=== PATIENT | female | born 1950 | race Caucasian/White ===

== ENCOUNTER 2019-08-09 14:35 | Inpatient (IN) | payer MEDICARE ==
[~2019-08-09] VITALS: Ht 152.4 cm; Wt 54.7 kg
[~2019-08-09 14:35] MED LIST: ASPI-1264 PO; CYT5T PO; FLUO20CA39 PO; FURO-150 PO; LAMO200T2 PO; LEVO75TA PO; LORA0.5T PO; POTA99TA18 PO; RES15C PO
[2019-08-09] MEDS ORDERED: ondansetron/PF 4mg/2ml inj IV ONE ×2 (15:20→17:15)
[2019-08-09] MEDS ORDERED: normal saline 1000ML IV soln IVB ONE (15:20)
[2019-08-09 15:55] LABS: BASOPHILS % (AUTO) 0.1 % (0-1); EOSINOPHILS % (AUTO) 0 % (0-6); HEMATOCRIT 35.5 % (35.0-45.0); HEMOGLOBIN 12.1 g/dl (12.0-16.0); LYMPHOCYTES # (AUTO) 0.7 X10'3 (1.1-4.8); LYMPHOCYTES % (AUTO) 5.4 % (21-51); MEAN CORPUSCULAR HEMOGLOBIN 29.7 PG (27.0-31.0); MEAN CORPUSCULAR HGB CONC 34.2 g/dL (33.0-36.5); MEAN CORPUSCULAR VOLUME 86.7 FL (78-98); MEAN PLATELET VOLUME 8.9 FL (7.4-10.4); MONOCYTES # (AUTO) 1.2 X10'3 (0-0.9); MONOCYTES % (AUTO) 8.7 % (2-12); NEUTROPHILS # (AUTO) 11.7 X10'3 (1.8-7.7); NEUTROPHILS % (AUTO) 85.8 % (42-75); PLATELET COUNT 201 X10'3 (140-440); RED BLOOD COUNT 4.09 X10'6 (4.20-5.60); RED CELL DISTRIBUTION WIDTH 14.6 % (11.5-14.5); WHITE BLOOD COUNT 13.7 X10'3 (4.5-11.0)
[2019-08-09 15:57] LABS: PARTIAL THROMBOPLASTIN TIME 31 SECONDS (22-32)
[2019-08-09 16:10] LABS: ALANINE AMINOTRANSFERASE 31 U/L (12-78); ALBUMIN 2.5 G/DL (3.4-5.0); ALBUMIN/GLOBULIN RATIO 0.7 (1.1-1.5); ALKALINE PHOSPHATASE 105 IU/L (46-116); ANION GAP 9 (8-16); ASPARTATE AMINO TRANSFERASE 25 U/L (10-37); BILIRUBIN,TOTAL 0.4 MG/DL (0.1-1.0); BLOOD UREA NITROGEN 12 MG/DL (7-18); BUN/CREATININE RATIO 11.2 (6.6-38.0); CALCIUM 8.3 MG/DL (8.5-10.1); CHLORIDE 92 MMOL/L (99-107); CREATININE 1.07 MG/DL (0.40-0.90); GLUCOSE 92 MG/DL (70-104); LIPASE 64 U/L (73-393); POTASSIUM 3.4 MMOL/L (3.5-5.1); SODIUM 128 MMOL/L (135-145); TOTAL CARBON DIOXIDE 27.2 MMOL/L (24-32); TOTAL PROTEIN 6.2 G/DL (6.4-8.2); eGFR 51 ML/MIN
[2019-08-09 16:27] LABS: C-REACTIVE PROTEIN 35.78 MG/DL (0.0-0.5)
[2019-08-09] MEDS ORDERED: metroNIDAZOLE-Flagyl 500mg/NS 100 ML IV ONE (16:55)
[2019-08-09] MEDS ORDERED: ciprofloxacin 250mg tablet PO STA (17:11)
[2019-08-09] MEDS ORDERED: morphine 4 MG/ML inj SYRINge IV ONE (17:15)
[2019-08-09 18:00] VITALS: BP 95/47
[2019-08-09] MEDS ORDERED: magnesium Cl slow-release 64mg tablet PO PRN (19:00)
[2019-08-09] MEDS ORDERED: morphine 2 MG/ML inj. syringe IV PRN (19:00)
[2019-08-09] MEDS ORDERED: potassium CL 10mEq/100ml bag 100 ML IV PRN ×2 (19:00)
[2019-08-09] MEDS ORDERED: magnesium 4gm in 100ml NS 100 ML IV PRN (19:00)
[2019-08-09] MEDS ORDERED: potassium Cl 20 mEq SR tablet PO PRN (19:00)
[2019-08-09] MEDS ORDERED: magnesium 2GM in 50ml NS 50 ML IV PRN (19:00)
[2019-08-09] MEDS: normal saline 1000ml 1,000 ML IV SCH (19:16)
[2019-08-09] MEDS: levoFLOXACIN-Levaquin 500mg/D5 100 ML IV SCH (19:16)
[2019-08-09] MEDS: ondansetron/PF 4mg/2ml inj IV PRN (19:16)
[2019-08-09 19:30] LABS: CLARITY,URINE SLIGHTLY CLOUDY (Clear); COLOR,URINE YELLOW (Yellow); GLUCOSE, URINE NEGATIVE (Neg); KETONES,URINE 15 mg/dl (Neg); LEUKOCYTE ESTERASE ,URINE NEGATIVE (Neg); NITRITES, URINE NEGATIVE (Neg); OCCULT BLOOD,URINE MODERATE (Neg); PROTEIN,URINE 30 mg/dl (Neg); UROBILINOGEN,URINE 0.2 E.U/dL (0.2-1.0)
[2019-08-09 19:38] LABS: UA COLLECTION TYPE STRAIGHT CATH
[2019-08-09] MEDS ORDERED: OMEP40CA13 PO (19:44)
[2019-08-09 19:45] LABS: AMORPHOUS URATES 1+; BACTERIA,URINE NONE SEEN /HPF (Neg); MUCUS STRANDS FEW /LPF (Neg); RBC,URINE 0-2 /HPF (0-2); SQUAMOUS EPITHELIAL CELL,UR FEW /LPF (FEW); TRANSITIONAL EPI CELLS,URINE MODERATE /HPF; WBC,URINE 0-4 /HPF (0-4)
[2019-08-09] MEDS ORDERED: LEVO88TA2 PO (19:55)
[2019-08-09] MEDS ORDERED: TEMA30CA PO (19:55)
[2019-08-09] MEDS ORDERED: PANT40TA4 PO (19:55)
[2019-08-09] MEDS: K and/or MAG REPLACEMENT MC SCH (20:00)
--- NOTE | 2019-08-09 21:57 | NUR ---
No current labs for potasium
[2019-08-09] MEDS: temazepam 15mg capsule PO PRN (22:15)
[2019-08-10] VITALS: BP 89/45
[2019-08-10] MEDS: metroNIDAZOLE-Flagyl 500mg/NS 100 ML IV SCH ×3 (00:25→16:16)
[2019-08-10 04:45] LABS: BASOPHILS % (AUTO) 0 % (0-1); EOSINOPHILS # (AUTO) 0.1 X10'3 (0-0.9); EOSINOPHILS % (AUTO) 0.6 % (0-6); HEMATOCRIT 32.3 % (35.0-45.0); HEMOGLOBIN 10.9 g/dl (12.0-16.0); LYMPHOCYTES # (AUTO) 0.9 X10'3 (1.1-4.8); LYMPHOCYTES % (AUTO) 6.9 % (21-51); MEAN CORPUSCULAR HEMOGLOBIN 29.8 PG (27.0-31.0); MEAN CORPUSCULAR HGB CONC 33.8 g/dL (33.0-36.5); MEAN CORPUSCULAR VOLUME 88.1 FL (78-98); MEAN PLATELET VOLUME 8.5 FL (7.4-10.4); MONOCYTES # (AUTO) 0.9 X10'3 (0-0.9); NEUTROPHILS # (AUTO) 10.5 X10'3 (1.8-7.7); NEUTROPHILS % (AUTO) 85.5 % (42-75); PLATELET COUNT 199 X10'3 (140-440); RED BLOOD COUNT 3.67 X10'6 (4.20-5.60); RED CELL DISTRIBUTION WIDTH 15.1 % (11.5-14.5); WHITE BLOOD COUNT 12.3 X10'3 (4.5-11.0)
[2019-08-10 04:49] LABS: ANION GAP 11 (8-16); BLOOD UREA NITROGEN 12 MG/DL (7-18); BUN/CREATININE RATIO 14.5 (6.6-38.0); CALCIUM 8.2 MG/DL (8.5-10.1); CHLORIDE 97 MMOL/L (99-107); CREATININE 0.83 MG/DL (0.40-0.90); GLUCOSE 93 MG/DL (70-104); MAGNESIUM 1.7 MG/DL (1.5-2.4); POTASSIUM 3.2 MMOL/L (3.5-5.1); SODIUM 132 MMOL/L (135-145); TOTAL CARBON DIOXIDE 23.7 MMOL/L (24-32); eGFR 68 ML/MIN
[2019-08-10] MEDS: normal saline 1000ml 1,000 ML IV SCH ×2 (05:16→17:48)
--- NOTE | 2019-08-10 06:34 | NUR ---
Problems reprioritized. Patient report given, questions answered & plan of care reviewed with Niya RN. Patient resting with no apparent distress.
[2019-08-10] MEDS: K and/or MAG REPLACEMENT MC SCH ×2 (06:41→20:00)
[2019-08-10 06:47] VITALS: BP 94/45
--- NOTE | 2019-08-10 06:48 | NUR ---
aware of patients low BP, patient has a hx of Hypotension Addendum: 08/10/19 at 0648 by Niya Boss RN Amended: Links added.
[2019-08-10 07:15] LABS: ANISOCYTOSIS 1+; PLATELET ESTIMATE NORMAL; POLYCHROMASIA 1+; TOTAL CELLS COUNTED 100; TOXIC GRANULATION 3+
[2019-08-10] MEDS: pantoprazole 40mg Tablet.DR PO SCH (07:35)
[2019-08-10] MEDS: levoTHYROXINE 88mcg tablet PO SCH (07:35)
[2019-08-10] MEDS: potassium Cl 20 mEq SR tablet PO PRN ×3 (07:41→20:34)
[2019-08-10] MEDS ORDERED: FLUoxetine 20mg capsule PO SCH (08:00)
[2019-08-10] MEDS ORDERED: lamoTRIgine 100mg tablet PO SCH (08:00)
[2019-08-10] MEDS: levoFLOXACIN-Levaquin 500mg/D5 100 ML IV SCH (08:48)
--- NOTE | 2019-08-10 09:10 | NUR ---
Fall Risk, Allergies, and DNR bands placed on patient. Addendum: 08/10/19 at 0911 by Niya Boss RN Amended: Links added.
--- NOTE | 2019-08-10 10:06 | NUR ---
Patient refusing MS, will waste.
--- NOTE | 2019-08-10 10:11 | NUR ---
PAGER ID: [phone] MESSAGE: Reyna Phillip would like to see if she can get Dil instead of MS. She states she hallucinates with MS and it makes her sick. Niya [id number]
[2019-08-10] MEDS ORDERED: HYDROmorphone inj. 0.5 MG/0.5 ML DISP.SYRIN IV PRN (11:10)
[2019-08-10] MEDS: FLUoxetine 20mg capsule PO SCH (11:34)
[2019-08-10 11:46] VITALS: BP 137/63
--- NOTE | 2019-08-10 12:17 | NUR ---
PAGER ID: [phone] MESSAGE: WarnerA Yuni Orellana : Dil 0.5 didn't do much for her pain, can I get an order for Dil 0.5 mg NOW and change it to Dil 1 mg Q4H? Niya 1200 Patient still having pain.
[2019-08-10] MEDS ORDERED: HYDROmorphone inj. 0.5 MG/0.5 ML DISP.SYRIN IM ONE (12:20)
[2019-08-10] MEDS ORDERED: HYDROmorphone inj. 0.5 MG/0.5 ML DISP.SYRIN IV ONE (12:35)
--- NOTE | 2019-08-10 15:44 | NUR ---
Malnutrition consult: Pt admit w/ diffuse LUW abdominal pain hx 5 days. Hx nausea but unable to vomit r/t prior Silvano fundoplication per MD note. CT abdomen shows colitis w/ diffuse prominence in cecum and ascending colon, mild pelvic ascites, and gas-filled LUQ possible mild ileus per MD note. Pt remains NPO at this time receiving electrolytes per protocol. At this time pt has decreased PO past 5 days but lacks significant wt loss hx, weakness, and edema to qualify for malnutrition. Will monitor for diet advancement and additional GI DX this admit. IF to remain NPO for prolonged colitis and having BM's may need future EN. Addendum: 08/10/19 at [address] Amended: Links added.
[2019-08-10] MEDS: HYDROmorphone 1 mg/ml syringe IV PRN ×2 (16:17→20:35)
[2019-08-10] MEDS ORDERED: magnesium hydroxide 30ml (MOM) UD suspension PO PRN (16:20)
[2019-08-10] MEDS: mag hydrox/Alum hydrox/simeth 30ml oral suspension PO PRN (17:46)
[2019-08-10 18:00] VITALS: BP 93/51
--- NOTE | 2019-08-10 18:07 | NUR ---
Problems reprioritized. Patient report given, questions answered & plan of care reviewed with Joce LOYOLA.
--- NOTE | 2019-08-10 18:09 | NUR ---
Patient in room [facility]. I have received report from Drea Núñez and had the opportunity to ask questions and assume patient care.
[2019-08-10] MEDS: lamoTRIgine 100mg tablet PO SCH (20:34)
[2019-08-10] MEDS: lactobacillus rhamnosus 10,000 MMU CELLS/CAPSULE PO SCH (20:34)
[2019-08-10] MEDS: temazepam 15mg capsule PO PRN (20:56)
[2019-08-11] VITALS: BP 89/48
[2019-08-11] MEDS: metroNIDAZOLE-Flagyl 500mg/NS 100 ML IV SCH ×3 (00:24→18:10)
[2019-08-11] MEDS: HYDROmorphone 1 mg/ml syringe IV PRN ×4 (03:55→20:41)
[2019-08-11] MEDS: normal saline 1000ml 1,000 ML IV SCH ×2 (03:55→10:58)
[2019-08-11 05:27] LABS: ALBUMIN 1.7 G/DL (3.4-5.0); ANION GAP 7 (8-16); BLOOD UREA NITROGEN 9 MG/DL (7-18); BUN/CREATININE RATIO 12.7 (6.6-38.0); CALCIUM 7.7 MG/DL (8.5-10.1); CHLORIDE 101 MMOL/L (99-107); CREATININE 0.71 MG/DL (0.40-0.90); GLUCOSE 87 MG/DL (70-104); MAGNESIUM 1.7 MG/DL (1.5-2.4); POTASSIUM 3.4 MMOL/L (3.5-5.1); SODIUM 133 MMOL/L (135-145); TOTAL CARBON DIOXIDE 24.9 MMOL/L (24-32); eGFR 82 ML/MIN
[2019-08-11 05:30] LABS: BASOPHILS % (AUTO) 0.1 % (0-1); EOSINOPHILS % (AUTO) 0.3 % (0-6); HEMATOCRIT 28.7 % (35.0-45.0); HEMOGLOBIN 9.6 g/dl (12.0-16.0); LYMPHOCYTES % (AUTO) 8.3 % (21-51); MEAN CORPUSCULAR HEMOGLOBIN 29.8 PG (27.0-31.0); MEAN CORPUSCULAR HGB CONC 33.6 g/dL (33.0-36.5); MEAN CORPUSCULAR VOLUME 88.9 FL (78-98); MEAN PLATELET VOLUME 8.7 FL (7.4-10.4); MONOCYTES % (AUTO) 8.6 % (2-12); NEUTROPHILS # (AUTO) 9.5 X10'3 (1.8-7.7); NEUTROPHILS % (AUTO) 82.7 % (42-75); PLATELET COUNT 207 X10'3 (140-440); RED BLOOD COUNT 3.22 X10'6 (4.20-5.60); RED CELL DISTRIBUTION WIDTH 15.6 % (11.5-14.5); WHITE BLOOD COUNT 11.5 X10'3 (4.5-11.0)
--- NOTE | 2019-08-11 06:12 | NUR ---
Problems reprioritized. Patient report given, questions answered & plan of care reviewed with MILLA Núñez.
--- NOTE | 2019-08-11 06:39 | NUR ---
Patient in room [facility]. I have received report from Enrique LOYOLA and had the opportunity to ask questions and assume patient care.
[2019-08-11 07:00] VITALS: BP 86/47
[2019-08-11] MEDS: lactobacillus rhamnosus 10,000 MMU CELLS/CAPSULE PO SCH ×2 (07:21→20:42)
[2019-08-11] MEDS: pantoprazole 40mg Tablet.DR PO SCH (07:22)
[2019-08-11] MEDS: levoTHYROXINE 88mcg tablet PO SCH (07:22)
[2019-08-11] MEDS: K and/or MAG REPLACEMENT MC SCH ×2 (08:00→20:00)
[2019-08-11] MEDS: levoFLOXACIN-Levaquin 500mg/D5 100 ML IV SCH (09:11)
[2019-08-11 09:43] LABS: PLATELET ESTIMATE NORMAL; TOTAL CELLS COUNTED 100; TOXIC GRANULATION 3+
[2019-08-11 09:44] LABS: BURR CELLS 1+
[2019-08-11] MEDS: mag hydrox/Alum hydrox/simeth 30ml oral suspension PO PRN (11:52)
--- NOTE | 2019-08-11 12:00 | NUR ---
Patient in room [facility]. I have received report from MILLA Núñez and had the opportunity to ask questions and assume patient care.
[2019-08-11] MEDS: FLUoxetine 20mg capsule PO SCH (12:49)
[2019-08-11] MEDS: potassium Cl 20mEq in D5-NS 1,000 ML IV SCH ×2 (13:00→21:41)
[2019-08-11 13:45] VITALS: BP 97/54
--- NOTE | 2019-08-11 16:48 | NUR ---
reviewed student nurse charting
--- NOTE | 2019-08-11 16:52 | NUR ---
Patient report given, questions answered & plan of care reviewed with MILLA Núñez.
[2019-08-11 19:30] VITALS: BP 120/70
[2019-08-11] MEDS: lamoTRIgine 100mg tablet PO SCH (20:43)
[2019-08-11] MEDS: potassium Cl 20 mEq SR tablet PO PRN (20:45)
[2019-08-11] MEDS: temazepam 15mg capsule PO PRN (21:06)
[2019-08-12] VITALS: BP 95/54
[2019-08-12] MEDS: potassium Cl 20mEq in D5-NS 1,000 ML IV SCH (01:59)
[2019-08-12 05:39] LABS: BASOPHILS % (AUTO) 0.2 % (0-1); EOSINOPHILS % (AUTO) 0.4 % (0-6); HEMATOCRIT 30.2 % (35.0-45.0); HEMOGLOBIN 10.4 g/dl (12.0-16.0); LYMPHOCYTES # (AUTO) 1.1 X10'3 (1.1-4.8); LYMPHOCYTES % (AUTO) 10.4 % (21-51); MEAN CORPUSCULAR HEMOGLOBIN 30.2 PG (27.0-31.0); MEAN CORPUSCULAR HGB CONC 34.2 g/dL (33.0-36.5); MEAN CORPUSCULAR VOLUME 88.4 FL (78-98); MONOCYTES # (AUTO) 0.8 X10'3 (0-0.9); MONOCYTES % (AUTO) 7.7 % (2-12); NEUTROPHILS # (AUTO) 8.6 X10'3 (1.8-7.7); NEUTROPHILS % (AUTO) 81.3 % (42-75); PLATELET COUNT 283 X10'3 (140-440); RED BLOOD COUNT 3.42 X10'6 (4.20-5.60); RED CELL DISTRIBUTION WIDTH 15.4 % (11.5-14.5); WHITE BLOOD COUNT 10.5 X10'3 (4.5-11.0)
[2019-08-12 06:00] LABS: ALBUMIN 1.8 G/DL (3.4-5.0); ANION GAP 9 (8-16); BLOOD UREA NITROGEN 5 MG/DL (7-18); BUN/CREATININE RATIO 7.8 (6.6-38.0); CALCIUM 8.2 MG/DL (8.5-10.1); CHLORIDE 106 MMOL/L (99-107); CREATININE 0.64 MG/DL (0.40-0.90); GLUCOSE 132 MG/DL (70-104); MAGNESIUM 1.7 MG/DL (1.5-2.4); POTASSIUM 3.5 MMOL/L (3.5-5.1); SODIUM 138 MMOL/L (135-145); TOTAL CARBON DIOXIDE 22.7 MMOL/L (24-32); eGFR > 90 ML/MIN
--- NOTE | 2019-08-12 06:26 | NUR ---
Patient in room [facility]. I have received report from Pat RN and had the opportunity to ask questions and assume patient care.
[2019-08-12] MEDS: HYDROmorphone 1 mg/ml syringe IV PRN ×4 (06:35→22:58)
[2019-08-12 07:05] LABS: TOTAL CELLS COUNTED 100
[2019-08-12 07:06] LABS: PLATELET ESTIMATE NORMAL; TOXIC GRANULATION 3+
[2019-08-12 08:00] VITALS: BP 96/59
[2019-08-12] MEDS: K and/or MAG REPLACEMENT MC SCH ×2 (08:00→19:38)
[2019-08-12] MEDS: pantoprazole 40mg Tablet.DR PO SCH (08:06)
[2019-08-12] MEDS: lactobacillus rhamnosus 10,000 MMU CELLS/CAPSULE PO SCH ×2 (08:06→20:57)
[2019-08-12] MEDS: levoTHYROXINE 88mcg tablet PO SCH (08:07)
[2019-08-12] MEDS: levoFLOXACIN-Levaquin 500mg/D5 100 ML IV SCH (08:07)
[2019-08-12] MEDS: metroNIDAZOLE-Flagyl 500mg/NS 100 ML IV SCH ×4 (11:10→23:01)
[2019-08-12] MEDS: FLUoxetine 20mg capsule PO SCH (11:11)
[2019-08-12] MEDS: normal saline 1000ml 1,000 ML IV SCH ×2 (12:59→20:58)
--- NOTE | 2019-08-12 13:33 | NUR ---
Zofran given for nausea. Dilaudid given for pain in abdomen. patient seen by Dr Vidal, is for repeat CT Abdomen
--- NOTE | 2019-08-12 15:28 | NUR ---
Initial: Pt admitted for colitis with abdominal pain and nausea for 5 days [employer]. Pt c/o poor appetite with poor PO intake for a year and in the past week has had worsening appetite. No wt hx and current wt is pt stated, pending scaled wt d/w RN. RD and international student advisor met with pt and family at bedside, unlikely accurate wt as pt has visible fat and muscle wasting. Daughter states pt probably has increased wt loss and decreased appetite d/t altered taste post dental procedure 3 years ago. Per MD, 20 pound wt loss in one month. Pt states 5 pound wt loss in one month. Pt previously NPO with poor PO intake x8 days, not meeting nutrient needs. RD d/w pt regarding different nutrition interventions including EN and TPN/PPN given prolonged NPO hx. Pt declines EN and would prefer nutrition via IV. RD notified MD regarding pt preferences and currently meets criteria for PN. MD advanced diet to clear liquid and would like Ensure TIDWM. Ensure Clear TIDWM added, MD notified pending verification prior to sending on trays. RD d/w RN. LBM 08/12 moderate liquid with colitis. Based on poor PO intake x8 days, decrease in appetite and wt loss reports varying between 5-20 pounds in one month, visible muscle and fat wasting, pt meets criteria for malnutrition, notified MD. Provided pt and family written and verbal education on malnutrition with ONS recommendations along with RD contact information. Will monitor PO intake and ONS acceptance once verified. Recommendation: 1. Advance diet as medically indicated to low residue 2. Ensure clear TIDWM, pending MD verification 3. Ensure Enlive TIDWM once diet advanced past clear liquids 4. Bowel care as needed 5. Wt per rx Addendum: 08/12/19 at 1528 by Wing Diaz ORTIZ Amended: Jordan added. Addendum: 08/12/19 at [address] Antonio Winter
[2019-08-12 15:40] LABS: OCCULT BLOOD STOOL NEGATIVE (Neg)
[2019-08-12] MEDS ORDERED: iohexol 300mg/ml 100ml inj. ONE (16:00)
[2019-08-12] MEDS: ondansetron/PF 4mg/2ml inj IV PRN (16:47)
--- NOTE | 2019-08-12 16:57 | NUR ---
PAGER ID: [phone] MESSAGE: RE: Yuni Orellana 350A She is extremely allergic to PNC. Niya Camarena [id number]
[2019-08-12] MEDS: NUT.TX.IMPAIRED DIGEST FXN (Ensure Clear) 237 ML PO SCH (18:00)
--- NOTE | 2019-08-12 18:42 | NUR ---
Patient in room [facility]. I have received report from MILLA Camarena and had the opportunity to ask questions and assume patient care.
--- NOTE | 2019-08-12 18:51 | NUR ---
Radiologist called this nurse about CT result, see report. Dr Vidal paged wrt scan. Patient unable to take Zosyn as has severe PCN allergy. Dr Vidal aware. Dr Mccord has been consulted with regards to Patient and CT results. Report given to Wendy Rivera RN
[2019-08-12 20:00] VITALS: BP 141/78
[2019-08-12] MEDS: lamoTRIgine 100mg tablet PO SCH (20:57)
[2019-08-12] MEDS: temazepam 15mg capsule PO PRN (23:01)
[2019-08-12 23:44] VITALS: BP 126/72
--- NOTE | 2019-08-13 06:20 | NUR ---
Problems reprioritized. Patient report given, questions answered & plan of care reviewed with MILLA Camarena.
[2019-08-13 06:24] LABS: BASOPHILS % (AUTO) 0.2 % (0-1); EOSINOPHILS % (AUTO) 0.5 % (0-6); HEMATOCRIT 30.1 % (35.0-45.0); HEMOGLOBIN 10.3 g/dl (12.0-16.0); LYMPHOCYTES # (AUTO) 1.1 X10'3 (1.1-4.8); LYMPHOCYTES % (AUTO) 12.2 % (21-51); MEAN CORPUSCULAR HEMOGLOBIN 29.9 PG (27.0-31.0); MEAN CORPUSCULAR HGB CONC 34.1 g/dL (33.0-36.5); MEAN CORPUSCULAR VOLUME 87.6 FL (78-98); MEAN PLATELET VOLUME 7.9 FL (7.4-10.4); MONOCYTES # (AUTO) 0.7 X10'3 (0-0.9); MONOCYTES % (AUTO) 7.6 % (2-12); NEUTROPHILS # (AUTO) 7.4 X10'3 (1.8-7.7); NEUTROPHILS % (AUTO) 79.5 % (42-75); PLATELET COUNT 306 X10'3 (140-440); RED BLOOD COUNT 3.43 X10'6 (4.20-5.60); RED CELL DISTRIBUTION WIDTH 15.4 % (11.5-14.5); WHITE BLOOD COUNT 9.4 X10'3 (4.5-11.0)
--- NOTE | 2019-08-13 06:36 | NUR ---
Patient in room [facility]. I have received report from LISSETTE Rivera RN and had the opportunity to ask questions and assume patient care.
[2019-08-13 06:37] LABS: ALBUMIN 1.7 G/DL (3.4-5.0); ANION GAP 9 (8-16); BLOOD UREA NITROGEN 4 MG/DL (7-18); BUN/CREATININE RATIO 6.8 (6.6-38.0); CALCIUM 7.7 MG/DL (8.5-10.1); CHLORIDE 109 MMOL/L (99-107); CREATININE 0.59 MG/DL (0.40-0.90); GLUCOSE 97 MG/DL (70-104); MAGNESIUM 1.5 MG/DL (1.5-2.4); POTASSIUM 3.6 MMOL/L (3.5-5.1); SODIUM 142 MMOL/L (135-145); TOTAL CARBON DIOXIDE 24.5 MMOL/L (24-32); eGFR > 90 ML/MIN
[2019-08-13 07:00] VITALS: BP 148/76
[2019-08-13 07:30] LABS: PLATELET ESTIMATE NORMAL; TOTAL CELLS COUNTED 100
[2019-08-13 07:31] LABS: BURR CELLS 1+; SCHISTOCYTES FEW; TOXIC GRANULATION 3+
[2019-08-13] MEDS: K and/or MAG REPLACEMENT MC SCH ×2 (07:49→19:30)
[2019-08-13] MEDS: normal saline 1000ml 1,000 ML IV SCH ×2 (07:54→15:22)
[2019-08-13] MEDS: levoTHYROXINE 88mcg tablet PO SCH (07:55)
[2019-08-13] MEDS: lactobacillus rhamnosus 10,000 MMU CELLS/CAPSULE PO SCH ×2 (07:55→19:56)
[2019-08-13] MEDS: pantoprazole 40mg Tablet.DR PO SCH (07:55)
[2019-08-13] MEDS: metroNIDAZOLE-Flagyl 500mg/NS 100 ML IV SCH ×3 (07:55→23:54)
[2019-08-13] MEDS: NUT.TX.IMPAIRED DIGEST FXN (Ensure Clear) 237 ML PO SCH ×3 (08:00→18:28)
[2019-08-13] MEDS: levoFLOXACIN-Levaquin 500mg/D5 100 ML IV SCH (09:23)
[2019-08-13 09:31] LABS: C DIFF ANTIGEN NEGATIVE (NEGATIVE); C DIFF SPECIMEN=DIARRHEA? ACCEPTABLE; C DIFFICILE TOXINS A&B NEGATIVE (Neg)
[2019-08-13 11:00] VITALS: BP 154/87
[2019-08-13] MEDS: HYDROmorphone 1 mg/ml syringe IV PRN ×3 (11:23→21:21)
[2019-08-13] MEDS: ondansetron/PF 4mg/2ml inj IV PRN ×3 (11:32→23:53)
[2019-08-13] MEDS: FLUoxetine 20mg capsule PO SCH (11:38)
[2019-08-13] MEDS ORDERED: Dextrose 10%-water IV solution 1,000 ML IV PRN (11:39)
[2019-08-13] MEDS ORDERED: fat emulsion 20% IV 181.82 ML, MVI, adult No.4 with vit. K 4.55 ML, Trace element-5 inj... IV SCH ×4 (11:39)
[2019-08-13] MEDS ORDERED: magnesium Cl slow-release 64mg tablet PO PRN ×2 (11:40→17:50)
[2019-08-13] MEDS ORDERED: magnesium 4gm in 100ml NS 100 ML IV PRN ×2 (11:40→17:50)
[2019-08-13] MEDS ORDERED: magnesium 2GM in 50ml NS 50 ML IV PRN (11:40)
--- NOTE | 2019-08-13 13:22 | NUR ---
TPN Consult: Pt remains on clear liquids pending central line for TPN today per MD. Pt may continue on clears w/ colitis in addition to supplemental TPN per RN. TPN recs below given initial sepsis diagnosis an to meet repletion needs. Pt PO 25% avg clear liquid meals w/ MD verification of ONS pending. Will monitor for nutrition support tolerance and signs of refeeding syndrome in malnourished pt. Recommendation: 1. Advance diet as medically indicated to low residue 2. TPN per MD via central line using Clinimix E 5/20 at 70ml/hr goal; separate 20% intralipid infusions to run 12 hours daily at 11ml/hr. To provide; 1680ml fluid, 84g AA, 336g DEX(3.67mg/kg/min), 26g fat, and 1738 total kcals to meet repletion needs. 3. Monitor for refeeding syndrome in malnourished condition 3. Ensure clear TIDWM, pending MD verification 4. Ensure Enlive TIDWM once diet advanced past clear liquids 5. Bowel care as needed 6. Wt per rx Addendum: 08/13/19 at [address] Amended: Links added.
[2019-08-13 13:38] LABS: ALANINE AMINOTRANSFERASE 22 U/L (12-78); ALBUMIN 1.9 G/DL (3.4-5.0); ALBUMIN/GLOBULIN RATIO 0.7 (1.1-1.5); ALKALINE PHOSPHATASE 65 IU/L (46-116); ANION GAP 10 (8-16); ASPARTATE AMINO TRANSFERASE 39 U/L (10-37); BILIRUBIN,TOTAL 0.2 MG/DL (0.1-1.0); BLOOD UREA NITROGEN 4 MG/DL (7-18); BUN/CREATININE RATIO 6.6 (6.6-38.0); CHLORIDE 107 MMOL/L (99-107); CREATININE 0.61 MG/DL (0.40-0.90); GLUCOSE 109 MG/DL (70-104); MAGNESIUM 1.5 MG/DL (1.5-2.4); PHOSPHORUS 2.5 MG/DL (2.3-4.5); POTASSIUM 3.2 MMOL/L (3.5-5.1); PREALBUMIN 12.6 MG/DL (19-36); SODIUM 141 MMOL/L (135-145); TOTAL CARBON DIOXIDE 24.2 MMOL/L (24-32); TOTAL PROTEIN 4.8 G/DL (6.4-8.2); TRIGLYCERIDES 58 MG/DL (20-135); eGFR > 90 ML/MIN
[2019-08-13] MEDS ORDERED: [UNRECOGNIZED DRUG - OTHER] IV SCH ×2 (16:00)
[2019-08-13] MEDS ORDERED: TRACE ELEMENT IV SCH ×2 (16:00)
[2019-08-13] MEDS ORDERED: LYTES IV SCH ×2 (16:00)
[2019-08-13] MEDS ORDERED: CALCIUM IV SCH ×2 (16:00)
[2019-08-13] MEDS ORDERED: DEXT IV SCH ×2 (16:00)
--- NOTE | 2019-08-13 16:30 | NUR ---
patient was given dilaudid at 1605 but noticed it did not record as given ,with faulty scanner. will continue to monitor and night RN aware for next doseaware for next dose Addendum: 08/13/19 at 1841 by Nicol Mae RN last note was not for this patient was for different patient
[2019-08-13] MEDS ORDERED: potassium Cl 20 mEq SR tablet PO PRN ×2 (17:50)
--- NOTE | 2019-08-13 18:28 | NUR ---
patient commenced on TPN 1630 hrs tolerating. Dilaudid and Zofran given for pain and nausea with effect. report given to Jazmin LOYOLA
--- NOTE | 2019-08-13 18:34 | NUR ---
Patient in room [facility]. I have received report from MILLA Camarena and had the opportunity to ask questions and assume patient care.
[2019-08-13] MEDS: zinc oxide ointment 30gm tube TP SCH (19:56)
[2019-08-13] MEDS: potassium CL 10mEq/100ml bag 100 ML IV PRN ×4 (19:58→23:54)
[2019-08-13 20:00] VITALS: BP 100/56
[2019-08-13] MEDS: fat emulsion IV bag 250 ML IV SCH (21:10)
[2019-08-13] MEDS: lamoTRIgine 100mg tablet PO SCH (21:10)
[2019-08-13] MEDS: temazepam 15mg capsule PO PRN (21:10)
[2019-08-14] VITALS: BP 116/66
[2019-08-14] MEDS: acetaminophen 325mg tablet PO PRN ×2 (02:31→17:44)
[2019-08-14 03:48] LABS: BASOPHILS % (AUTO) 0.3 % (0-1); EOSINOPHILS # (AUTO) 0.1 X10'3 (0-0.9); EOSINOPHILS % (AUTO) 0.7 % (0-6); HEMOGLOBIN 9.5 g/dl (12.0-16.0); LYMPHOCYTES % (AUTO) 10.6 % (21-51); MEAN CORPUSCULAR HEMOGLOBIN 29.8 PG (27.0-31.0); MEAN CORPUSCULAR HGB CONC 33.9 g/dL (33.0-36.5); MEAN CORPUSCULAR VOLUME 87.9 FL (78-98); MEAN PLATELET VOLUME 7.4 FL (7.4-10.4); MONOCYTES # (AUTO) 0.8 X10'3 (0-0.9); MONOCYTES % (AUTO) 8.1 % (2-12); NEUTROPHILS # (AUTO) 7.8 X10'3 (1.8-7.7); NEUTROPHILS % (AUTO) 80.3 % (42-75); PLATELET COUNT 270 X10'3 (140-440); RED BLOOD COUNT 3.18 X10'6 (4.20-5.60); RED CELL DISTRIBUTION WIDTH 15.5 % (11.5-14.5); WHITE BLOOD COUNT 9.7 X10'3 (4.5-11.0)
[2019-08-14] MEDS: normal saline 1000ml 1,000 ML IV SCH ×3 (04:00→17:27)
[2019-08-14 04:10] LABS: ALANINE AMINOTRANSFERASE 25 U/L (12-78); ALBUMIN 1.6 G/DL (3.4-5.0); ALBUMIN/GLOBULIN RATIO 0.7 (1.1-1.5); ALKALINE PHOSPHATASE 52 IU/L (46-116); ANION GAP 3 (8-16); ASPARTATE AMINO TRANSFERASE 36 U/L (10-37); BILIRUBIN,TOTAL 0.2 MG/DL (0.1-1.0); BLOOD UREA NITROGEN 4 MG/DL (7-18); BUN/CREATININE RATIO 6.6 (6.6-38.0); CHLORIDE 107 MMOL/L (99-107); CREATININE 0.61 MG/DL (0.40-0.90); GLUCOSE 138 MG/DL (70-104); MAGNESIUM 1.3 MG/DL (1.5-2.4); PHOSPHORUS 2.2 MG/DL (2.3-4.5); POTASSIUM 3.1 MMOL/L (3.5-5.1); PREALBUMIN 12.5 MG/DL (19-36); SODIUM 138 MMOL/L (135-145); TOTAL CARBON DIOXIDE 28.3 MMOL/L (24-32); TRIGLYCERIDES 70 MG/DL (20-135); eGFR > 90 ML/MIN
--- NOTE | 2019-08-14 04:42 | NUR ---
Do not increase TPN per Sema in pharmacy until primary physician notified regarding the following labs: K+ dropped from 3.2 to 3.1 despite replacement, Mag dropped 1.5 to 1.3, and Phos dropped 2.5 to 2.2. Will leave TPN at rate of 30 until dayshift hospitalist has been consulted.
--- NOTE | 2019-08-14 06:15 | NUR ---
Problems reprioritized. Patient report given, questions answered & plan of care reviewed with MILLA Rangel.
--- NOTE | 2019-08-14 06:45 | NUR ---
Patient in room [facility]. I have received report from Jazmin Conley and had the opportunity to ask questions and assume patient care.
[2019-08-14] MEDS: pantoprazole 40mg Tablet.DR PO SCH (07:28)
[2019-08-14] MEDS: lactobacillus rhamnosus 10,000 MMU CELLS/CAPSULE PO SCH ×2 (07:29→21:54)
[2019-08-14] MEDS: levoTHYROXINE 88mcg tablet PO SCH (07:29)
[2019-08-14] MEDS: metroNIDAZOLE-Flagyl 500mg/NS 100 ML IV SCH ×3 (07:32→23:51)
[2019-08-14] MEDS: ondansetron/PF 4mg/2ml inj IV PRN ×3 (07:34→21:53)
[2019-08-14] MEDS: zinc oxide ointment 30gm tube TP SCH ×2 (07:39→21:54)
[2019-08-14] MEDS: HYDROmorphone 1 mg/ml syringe IV PRN ×4 (07:43→22:19)
[2019-08-14] MEDS ORDERED: potassium phosphate inj 15 MMOL in normal saline 250ml IV soln 245 ML IV ONE (07:45)
[2019-08-14 08:00] VITALS: BP 132/81
[2019-08-14] MEDS: NUT.TX.IMPAIRED DIGEST FXN (Ensure Clear) 237 ML PO SCH ×3 (08:00→18:00)
[2019-08-14] MEDS: K and/or MAG REPLACEMENT MC SCH ×2 (08:00→20:00)
[2019-08-14] MEDS ORDERED: MVI, adult No.4 with vit. K 10 ML in dextrose 5% water 500ml 490 ML IV SCH ×2 (10:00)
[2019-08-14 11:00] VITALS: BP 130/73
[2019-08-14] MEDS: FLUoxetine 20mg capsule PO SCH (12:30)
[2019-08-14 13:24] LABS: IRON 64 UG/DL (49-151)
[2019-08-14 13:38] LABS: % IRON SATURATION 37 % (11-46); TOTAL IRON BINDING CAPACITY 174 UG/DL (259-388)
[2019-08-14] MEDS ORDERED: TRACE ELEMENT IV SCH ×2 (16:00)
[2019-08-14] MEDS ORDERED: LYTES IV SCH ×2 (16:00)
[2019-08-14] MEDS ORDERED: [UNRECOGNIZED DRUG - OTHER] IV SCH ×2 (16:00)
[2019-08-14] MEDS ORDERED: DEXT IV SCH ×2 (16:00)
[2019-08-14] MEDS ORDERED: CALCIUM IV SCH ×2 (16:00)
[2019-08-14] MEDS: Trace element-5 inj. 1 ML in AA 5 %/CALCIUM/LYTES/DEXT 20% 2,000 ML IV SCH (17:04)
[2019-08-14] MEDS: levoFLOXACIN-Levaquin 500mg/D5 100 ML IV SCH (17:20)
--- NOTE | 2019-08-14 17:37 | NUR ---
Student Medication Administration: medication were reviewed, dispensed, administered and documented per hospital policy by Daphne PIKE
--- NOTE | 2019-08-14 18:00 | NUR ---
Problems reprioritized. Patient report given, questions answered & plan of care reviewed with Jaclyn LOYOLA.
[2019-08-14 18:30] VITALS: BP 140/84
--- NOTE | 2019-08-14 18:46 | NUR ---
Patient in room [facility]. I have received report from MILLA Rangel and had the opportunity to ask questions and assume patient care.
[2019-08-14] MEDS: fat emulsion IV bag 250 ML IV SCH (21:48)
[2019-08-14] MEDS: lamoTRIgine 100mg tablet PO SCH (21:54)
[2019-08-15] VITALS (12 sets, daily range): BP systolic 112–172; BP diastolic 69–102
[2019-08-15] MEDS: temazepam 15mg capsule PO PRN ×2 (00:34→22:26)
[2019-08-15] MEDS: acetaminophen 325mg tablet PO PRN ×2 (00:34→09:27)
[2019-08-15] MEDS: ondansetron/PF 4mg/2ml inj IV PRN ×3 (05:52→22:26)
[2019-08-15 06:35] LABS: ALANINE AMINOTRANSFERASE 25 U/L (12-78); ALBUMIN 1.6 G/DL (3.4-5.0); ALBUMIN/GLOBULIN RATIO 0.7 (1.1-1.5); ALKALINE PHOSPHATASE 48 IU/L (46-116); ANION GAP 8 (8-16); ASPARTATE AMINO TRANSFERASE 31 U/L (10-37); BILIRUBIN,TOTAL 0.1 MG/DL (0.1-1.0); BLOOD UREA NITROGEN 5 MG/DL (7-18); BUN/CREATININE RATIO 8.9 (6.6-38.0); CALCIUM 7.4 MG/DL (8.5-10.1); CHLORIDE 105 MMOL/L (99-107); CREATININE 0.56 MG/DL (0.40-0.90); GLUCOSE 145 MG/DL (70-104); MAGNESIUM 1.4 MG/DL (1.5-2.4); PHOSPHORUS 2.6 MG/DL (2.3-4.5); SODIUM 139 MMOL/L (135-145); TOTAL CARBON DIOXIDE 26.1 MMOL/L (24-32); TOTAL PROTEIN 3.9 G/DL (6.4-8.2); eGFR > 90 ML/MIN
[2019-08-15 06:41] LABS: POTASSIUM 2.9 MMOL/L (3.5-5.1)
--- NOTE | 2019-08-15 06:44 | NUR ---
Problems reprioritized. Patient report given, questions answered & plan of care reviewed with MILLA Rangel.
--- NOTE | 2019-08-15 06:55 | NUR ---
critical value received from lab, called Dr Mayorga and received orders to replace via IV diluted so it is not so painful.
--- NOTE | 2019-08-15 06:56 | NUR ---
Patient in room [facility]. I have received report from Jaclyn LOYOLA and had the opportunity to ask questions and assume patient care.
[2019-08-15] MEDS ORDERED: potassium Cl 40MEQ/NS 500ml 500 ML IV ONE ×2 (07:00→11:30)
[2019-08-15] MEDS: HYDROmorphone 1 mg/ml syringe IV PRN ×2 (07:41→12:15)
[2019-08-15] MEDS: metroNIDAZOLE-Flagyl 500mg/NS 100 ML IV SCH ×2 (07:57→15:55)
[2019-08-15] MEDS: multivitamins, therapeutics tablet PO SCH (08:00)
[2019-08-15] MEDS: zinc oxide ointment 30gm tube TP SCH ×2 (08:00→20:00)
[2019-08-15] MEDS: NUT.TX.IMPAIRED DIGEST FXN (Ensure Clear) 237 ML PO SCH ×3 (08:00→18:00)
[2019-08-15] MEDS: K and/or MAG REPLACEMENT MC SCH ×2 (08:00→19:32)
--- NOTE | 2019-08-15 09:00 | NUR ---
Pt has a critical value of 2.9 K, pt received 40mEq po K and will receive 2 pharmacy prepared IV 40mEq of bags of K during the day.
[2019-08-15] MEDS: levoFLOXACIN-Levaquin 500mg/D5 100 ML IV SCH (10:43)
[2019-08-15] MEDS: lactobacillus rhamnosus 10,000 MMU CELLS/CAPSULE PO SCH ×2 (11:09→21:18)
[2019-08-15] MEDS: pantoprazole 40mg Tablet.DR PO SCH (11:09)
[2019-08-15] MEDS: levoTHYROXINE 88mcg tablet PO SCH (11:09)
[2019-08-15 11:55] LABS: CLARITY,URINE CLEAR (Clear); COLOR,URINE YELLOW (Yellow); GLUCOSE, URINE 100 mg/dl (Neg); KETONES,URINE NEGATIVE (Neg); LEUKOCYTE ESTERASE ,URINE NEGATIVE (Neg); NITRITES, URINE NEGATIVE (Neg); OCCULT BLOOD,URINE TRACE-INTACT (Neg); PROTEIN,URINE NEGATIVE (Neg); UROBILINOGEN,URINE 0.2 E.U/dL (0.2-1.0)
[2019-08-15 12:00] LABS: UA COLLECTION TYPE CLN CATCH MIDSTREAM
[2019-08-15 12:03] LABS: MUCUS STRANDS FEW /LPF (Neg); SQUAMOUS EPITHELIAL CELL,UR FEW /LPF (FEW)
[2019-08-15 12:04] LABS: BACTERIA,URINE NONE SEEN /HPF (Neg); RBC,URINE 0-2 /HPF (0-2); WBC,URINE 0-4 /HPF (0-4)
[2019-08-15 12:05] LABS: TRANSITIONAL EPI CELLS,URINE FEW /HPF
[2019-08-15] MEDS: FLUoxetine 20mg capsule PO SCH (12:14)
[2019-08-15] MEDS ORDERED: acetaminophen 1,000mg/100ml IV 100 ML IV PRN (13:00)
--- NOTE | 2019-08-15 14:20 | NUR ---
Reassessment: Pt now with abdomen distention and abdominal pain per MD notes. 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 Discussed diet order with RN who reports pt with abdominal pain following any PO intake and is no longer on a clear liquid diet or to receive Ensure Clear at this time, d/w dietary. Pt continues with TPN running at goal rate and tolerating using Clinimix-E and additionally receiving PRN electrolyte replacement for K and mag with routine K replacement. LBM 08/14. Will continue to follow closely. Recommendation: 1. Advance diet as medically indicated to low residue 2. TPN per MD via central line using Clinimix E /20 at 70ml/hr goal; separate 20% intralipid infusions to run 12 hours daily at 11ml/hr. To provide; 1680ml fluid, 84g AA, 336g DEX(3.67mg/kg/min), 26g fat, and 1738 total kcals to meet repletion needs. 3. Prealbumin and TG q / 4. Monitor for refeeding syndrome in malnourished condition 5. Monitor need for ONS with PO diet advancement 6. Bowel care as needed 7. Daily weights Addendum: 08/15/19 at [address] Amended: Links added.
[2019-08-15] MEDS: mag hydrox/Alum hydrox/simeth 30ml oral suspension PO PRN (14:27)
[2019-08-15] MEDS ORDERED: ketorolac tromethamine 15mg/ml inj. IV ONE (15:18)
[2019-08-15] MEDS: normal saline 1000ml 1,000 ML IV SCH ×2 (15:55→18:57)
[2019-08-15] MEDS ORDERED: fentaNYL/PF 50MCG/1 ML 2ML syringe IV PRN (16:25)
[2019-08-15] MEDS ORDERED: midazolam 2 mg/2 ml injection IV PRN (16:25)
[2019-08-15] MEDS ORDERED: heparin 1,000 UNITS/NS 500ml 500 ML ICATH ONE (16:25)
[2019-08-15] MEDS ORDERED: LIDOcaine 1%/PF 5ML 10 MG/ML VIAL SQ ONE (16:25)
[2019-08-15] MEDS ORDERED: iohexol 300mg/ml 100ml inj. ONE (16:30)
[2019-08-15] MEDS ORDERED: LIDOcaine 1%/PF 5ML 10 MG/ML VIAL ONE (16:30)
[2019-08-15] MEDS ORDERED: heparin 1,000 UNITS/NS 500ml 500 ML ONE (16:30)
[2019-08-15] MEDS ORDERED: fentaNYL/PF 50MCG/1 ML 2ML syringe ONE ×2 (17:32→17:57)
[2019-08-15] MEDS ORDERED: midazolam 2 mg/2 ml injection ONE ×2 (17:32→17:57)
--- NOTE | 2019-08-15 18:00 | NUR ---
Problems reprioritized. Patient report given, questions answered & plan of care reviewed with Jaclyn LOYOLA.
[2019-08-15] MEDS ORDERED: heparin 1,000unit/ml 10ml vial 10 ML ONE (18:29)
--- NOTE | 2019-08-15 18:30 | NUR ---
Patient in room [facility]. I have received report from MILLA Rangel and had the opportunity to ask questions and assume patient care.
--- NOTE | 2019-08-15 20:00 | NUR ---
Pt is S/P mesenteric angiogram. Pt states pain is 10/10. No pain medications available. Dilaudid and acetaminophen has been discontinued. Toradol 15mg ONCE IV was administered prior procedure. Paged Dr. Bee and received order for Toradol 15 mg IV Q6H PRN severe pain and Tylenol 650 mg PO PRN pain. Orders placed.
[2019-08-15] MEDS: ketorolac tromethamine 15mg/ml inj. IV PRN (20:46)
[2019-08-15] MEDS: pantoprazole 40 MG vial IV SCH (20:53)
[2019-08-15] MEDS: Trace element-5 inj. 1 ML in AA 5 %/CALCIUM/LYTES/DEXT 20% 2,000 ML IV SCH (21:02)
[2019-08-15] MEDS: lamoTRIgine 100mg tablet PO SCH (21:18)
[2019-08-15] MEDS: fat emulsion IV bag 250 ML IV SCH (21:23)
--- NOTE | 2019-08-15 21:25 | NUR ---
Pt had incontinent void, bladder distended. Bladder scan performed, 568 mL, post void residual. Pt will use bedpan to void. Will continue to monitor pt.
--- NOTE | 2019-08-15 21:40 | NUR ---
Pt on bedpan and was able to void, 500 mL with moderate amt of green formed stools. Pt states that she is "feeling a lot better" now. Will continue to monitor patient.
--- NOTE | 2019-08-15 22:00 | NUR ---
Bladder scan performed, 57 mL post void residual. Will continue to monitor patient.
[2019-08-15] MEDS: diatr meglu/diatrizoate 30ml oral sol.-(3 dose) bottle PO SCH (22:26)
[2019-08-16 00:15] VITALS: BP 125/74
[2019-08-16] MEDS: metroNIDAZOLE-Flagyl 500mg/NS 100 ML IV SCH ×3 (00:30→16:21)
[2019-08-16 00:47] LABS: MAGNESIUM 1.4 MG/DL (1.5-2.4); POTASSIUM 3.7 MMOL/L (3.5-5.1)
[2019-08-16] MEDS: acetaminophen 325mg tablet PO PRN (01:16)
[2019-08-16] MEDS ORDERED: ketorolac tromethamine 15mg/ml inj. IV SCH (02:00)
--- NOTE | 2019-08-16 02:30 | NUR ---
Pt unable to void, bladder scan performed, 207mL. Will continue to monitor pt.
[2019-08-16] MEDS: ketorolac tromethamine 15mg/ml inj. IV PRN ×3 (03:06→19:23)
[2019-08-16 04:30] VITALS: BP 123/75
[2019-08-16] MEDS: normal saline 1000ml 1,000 ML IV SCH ×2 (06:35→23:31)
--- NOTE | 2019-08-16 06:41 | NUR ---
Problems reprioritized. Patient report given, questions answered & plan of care reviewed with MILLA Lipscomb.
[2019-08-16 07:00] VITALS: BP 126/71
[2019-08-16] MEDS: multivitamins, therapeutics tablet PO SCH (07:31)
[2019-08-16] MEDS: lactobacillus rhamnosus 10,000 MMU CELLS/CAPSULE PO SCH ×2 (07:31→19:30)
[2019-08-16] MEDS: levoTHYROXINE 88mcg tablet PO SCH (07:31)
[2019-08-16] MEDS: pantoprazole 40 MG vial IV SCH ×2 (07:31→19:30)
[2019-08-16] MEDS: diatr meglu/diatrizoate 30ml oral sol.-(3 dose) bottle PO SCH ×2 (07:32→10:08)
[2019-08-16] MEDS: K and/or MAG REPLACEMENT MC SCH ×2 (08:00→19:02)
[2019-08-16] MEDS: NUT.TX.IMPAIRED DIGEST FXN (Ensure Clear) 237 ML PO SCH ×3 (08:00→18:00)
--- NOTE | 2019-08-16 09:04 | NUR ---
Patient in room [facility]. I have received report from TUAN LOYOLA and had the opportunity to ask questions and assume patient care.
--- NOTE | 2019-08-16 09:39 | NUR ---
DID NOT ADMIN ENSURE. PT IS NPO AND ON TPN. WILL VERIFY WITH HOSPITALIST ROUNDS
[2019-08-16] MEDS: levoFLOXACIN-Levaquin 500mg/D5 100 ML IV SCH (10:08)
--- NOTE | 2019-08-16 10:23 | NUR ---
PLACED JOHNSON CATHETER, GAVE LAS DOSE OF GASTRO, AND PAGED CT TO LET THEM KNOW PT IS READY
[2019-08-16 11:00] VITALS: BP 142/79
--- NOTE | 2019-08-16 11:07 | NUR ---
Pt back from CT. IV fluids and TPN re-started. Call light in reach. Family at bedside.
[2019-08-16] MEDS: FLUoxetine 20mg capsule PO SCH (12:41)
[2019-08-16] MEDS: ondansetron/PF 4mg/2ml inj IV PRN (15:03)
--- NOTE | 2019-08-16 16:23 | NUR ---
sent a message to pharmacy this morning explaining that the bar code on the tube of medication is folded and it won't scan. they sent another medication to replace it with another bar scan folded in half and it won't scan. called pharmacy again. received a scannable bar code at 1529
[2019-08-16] MEDS: zinc oxide ointment 30gm tube TP SCH ×2 (16:27→21:25)
[2019-08-16] MEDS ORDERED: potassium Cl 20 mEq SR tablet PO PRN (18:10)
[2019-08-16 18:15] VITALS: BP 153/81
--- NOTE | 2019-08-16 18:15 | NUR ---
Patient in room [facility]. I have received report from MILLA Saleh and had the opportunity to ask questions and assume patient care.
[2019-08-16 18:41] LABS: ALBUMIN 1.6 G/DL (3.4-5.0); ANION GAP 4 (8-16); BLOOD UREA NITROGEN 10 MG/DL (7-18); BUN/CREATININE RATIO 18.5 (6.6-38.0); CHLORIDE 106 MMOL/L (99-107); CREATININE 0.54 MG/DL (0.40-0.90); GLUCOSE 126 MG/DL (70-104); POTASSIUM 3.2 MMOL/L (3.5-5.1); SODIUM 138 MMOL/L (135-145); TOTAL CARBON DIOXIDE 28.1 MMOL/L (24-32); eGFR > 90 ML/MIN
[2019-08-16] MEDS: potassium CL 10mEq/100ml bag 100 ML IV PRN ×3 (19:36→23:31)
[2019-08-16] MEDS: temazepam 15mg capsule PO PRN (21:25)
[2019-08-16] MEDS: lamoTRIgine 100mg tablet PO SCH (21:25)
[2019-08-16] MEDS: fat emulsion IV bag 250 ML IV SCH (21:26)
[2019-08-17 00:15] VITALS: BP 119/66
[2019-08-17] MEDS: potassium CL 10mEq/100ml bag 100 ML IV PRN (00:30)
[2019-08-17] MEDS: metroNIDAZOLE-Flagyl 500mg/NS 100 ML IV SCH ×4 (01:30→23:17)
[2019-08-17] MEDS: Trace element-5 inj. 1 ML in AA 5 %/CALCIUM/LYTES/DEXT 20% 2,000 ML IV SCH (01:34)
[2019-08-17] MEDS: acetaminophen 325mg tablet PO PRN ×2 (03:39→14:34)
[2019-08-17 05:55] LABS: BASOPHILS % (AUTO) 0.1 % (0-1); EOSINOPHILS # (AUTO) 0.2 X10'3 (0-0.9); EOSINOPHILS % (AUTO) 1.8 % (0-6); HEMOGLOBIN 7.3 g/dl (12.0-16.0); LYMPHOCYTES # (AUTO) 1.4 X10'3 (1.1-4.8); LYMPHOCYTES % (AUTO) 13.6 % (21-51); MEAN CORPUSCULAR HEMOGLOBIN 30.7 PG (27.0-31.0); MEAN CORPUSCULAR HGB CONC 34.9 g/dL (33.0-36.5); MEAN PLATELET VOLUME 7.3 FL (7.4-10.4); MONOCYTES # (AUTO) 0.8 X10'3 (0-0.9); MONOCYTES % (AUTO) 7.4 % (2-12); NEUTROPHILS # (AUTO) 8.1 X10'3 (1.8-7.7); NEUTROPHILS % (AUTO) 77.1 % (42-75); PLATELET COUNT 284 X10'3 (140-440); RED BLOOD COUNT 2.37 X10'6 (4.20-5.60); RED CELL DISTRIBUTION WIDTH 15.3 % (11.5-14.5); WHITE BLOOD COUNT 10.5 X10'3 (4.5-11.0)
[2019-08-17] MEDS ORDERED: methylPREDNISolone sod succ 125mg/2ml vial IV ONE (06:05)
[2019-08-17 06:10] LABS: ALBUMIN 1.7 G/DL (3.4-5.0); ANION GAP 6 (8-16); BLOOD UREA NITROGEN 9 MG/DL (7-18); BUN/CREATININE RATIO 14.1 (6.6-38.0); CALCIUM 7.2 MG/DL (8.5-10.1); CHLORIDE 107 MMOL/L (99-107); CREATININE 0.64 MG/DL (0.40-0.90); GLUCOSE 116 MG/DL (70-104); POTASSIUM 3.6 MMOL/L (3.5-5.1); SODIUM 139 MMOL/L (135-145); TOTAL CARBON DIOXIDE 26.2 MMOL/L (24-32); eGFR > 90 ML/MIN
[2019-08-17 06:13] LABS: HEMATOCRIT 20.8 % (35.0-45.0)
[2019-08-17 06:26] LABS: C-REACTIVE PROTEIN 0.52 MG/DL (0.0-0.5)
--- NOTE | 2019-08-17 06:46 | NUR ---
Patient in room [facility]. I have received report from MILLA Anaya and had the opportunity to ask questions and assume patient care.
--- NOTE | 2019-08-17 07:11 | NUR ---
Problems reprioritized. Patient report given, questions answered & plan of care reviewed with MILLA Davalos.
[2019-08-17] MEDS: K and/or MAG REPLACEMENT MC SCH ×2 (07:16→19:59)
[2019-08-17 07:17] VITALS: BP 152/79
[2019-08-17] MEDS: pantoprazole 40 MG vial IV SCH ×2 (07:37→20:26)
[2019-08-17] MEDS: lactobacillus rhamnosus 10,000 MMU CELLS/CAPSULE PO SCH ×2 (07:40→20:26)
[2019-08-17] MEDS: levoTHYROXINE 88mcg tablet PO SCH (07:40)
[2019-08-17] MEDS: multivitamins, therapeutics tablet PO SCH (07:40)
[2019-08-17] MEDS: zinc oxide ointment 30gm tube TP SCH ×2 (07:43→20:38)
[2019-08-17] MEDS: NUT.TX.IMPAIRED DIGEST FXN (Ensure Clear) 237 ML PO SCH ×3 (08:00→18:00)
[2019-08-17] MEDS: levoFLOXACIN-Levaquin 500mg/D5 100 ML IV SCH (09:05)
[2019-08-17] MEDS: normal saline 1000ml 1,000 ML IV SCH ×2 (10:57→14:34)
[2019-08-17 11:00] VITALS: BP 153/84
[2019-08-17] MEDS: FLUoxetine 20mg capsule PO SCH (12:59)
[2019-08-17 17:24] LABS: MEAN CORPUSCULAR HGB CONC 32.9 g/dL (33.0-36.5); MEAN CORPUSCULAR VOLUME 91.4 FL (78-98); MEAN PLATELET VOLUME 7.4 FL (7.4-10.4); PLATELET COUNT 276 X10'3 (140-440); RED BLOOD COUNT 2.09 X10'6 (4.20-5.60); RED CELL DISTRIBUTION WIDTH 16.1 % (11.5-14.5); WHITE BLOOD COUNT 9.4 X10'3 (4.5-11.0)
[2019-08-17 17:29] LABS: HEMATOCRIT 19.1 % (35.0-45.0); HEMOGLOBIN 6.3 g/dl (12.0-16.0)
--- NOTE | 2019-08-17 17:45 | NUR ---
Patient was asked about accepting blood products. Patient stated that she does not accept blood products.
--- NOTE | 2019-08-17 18:25 | NUR ---
Problems reprioritized. Patient report given, questions answered & plan of care reviewed with MILLA Meyers.
--- NOTE | 2019-08-17 18:30 | NUR ---
Patient in room [facility]. I have received report from Susannah LOYOLA and had the opportunity to ask questions and assume patient care.
[2019-08-17 20:00] VITALS: BP 153/81
--- NOTE | 2019-08-17 20:00 | NUR ---
MD in to assess drainage from surgical puncture site to R groin area. MD applied a pressure dressing with instructions to reinforce if drainage continues.
[2019-08-17 20:23] LABS: OCCULT BLOOD STOOL NEGATIVE (Neg)
[2019-08-17] MEDS: fat emulsion IV bag 250 ML IV SCH (20:26)
[2019-08-17] MEDS: lamoTRIgine 100mg tablet PO SCH (20:26)
[2019-08-17] MEDS: temazepam 15mg capsule PO PRN (23:18)
[2019-08-18] VITALS: BP 157/74
[2019-08-18 05:20] LABS: BASOPHILS % (AUTO) 0.1 % (0-1); EOSINOPHILS # (AUTO) 0.2 X10'3 (0-0.9); EOSINOPHILS % (AUTO) 1.4 % (0-6); LYMPHOCYTES # (AUTO) 1.5 X10'3 (1.1-4.8); LYMPHOCYTES % (AUTO) 13.8 % (21-51); MEAN CORPUSCULAR HEMOGLOBIN 30.3 PG (27.0-31.0); MEAN CORPUSCULAR HGB CONC 34.5 g/dL (33.0-36.5); MEAN CORPUSCULAR VOLUME 87.7 FL (78-98); MEAN PLATELET VOLUME 7.5 FL (7.4-10.4); MONOCYTES # (AUTO) 0.8 X10'3 (0-0.9); MONOCYTES % (AUTO) 7.2 % (2-12); NEUTROPHILS # (AUTO) 8.5 X10'3 (1.8-7.7); NEUTROPHILS % (AUTO) 77.5 % (42-75); PLATELET COUNT 300 X10'3 (140-440); RED BLOOD COUNT 2.23 X10'6 (4.20-5.60); RED CELL DISTRIBUTION WIDTH 15.2 % (11.5-14.5)
[2019-08-18] MEDS: normal saline 1000ml 1,000 ML IV SCH ×2 (05:29→20:01)
[2019-08-18 05:30] LABS: HEMATOCRIT 19.5 % (35.0-45.0); HEMOGLOBIN 6.7 g/dl (12.0-16.0)
[2019-08-18 05:40] LABS: ALANINE AMINOTRANSFERASE 38 U/L (12-78); ALBUMIN 1.7 G/DL (3.4-5.0); ALBUMIN/GLOBULIN RATIO 0.7 (1.1-1.5); ALKALINE PHOSPHATASE 52 IU/L (46-116); ANION GAP 5 (8-16); ASPARTATE AMINO TRANSFERASE 47 U/L (10-37); BILIRUBIN,TOTAL 0.2 MG/DL (0.1-1.0); BLOOD UREA NITROGEN 9 MG/DL (7-18); BUN/CREATININE RATIO 16.4 (6.6-38.0); CALCIUM 7.3 MG/DL (8.5-10.1); CHLORIDE 107 MMOL/L (99-107); CREATININE 0.55 MG/DL (0.40-0.90); GLUCOSE 98 MG/DL (70-104); MAGNESIUM 1.5 MG/DL (1.5-2.4); PHOSPHORUS 3.1 MG/DL (2.3-4.5); POTASSIUM 3.2 MMOL/L (3.5-5.1); PREALBUMIN 21.6 MG/DL (19-36); SODIUM 138 MMOL/L (135-145); TOTAL CARBON DIOXIDE 26.1 MMOL/L (24-32); TRIGLYCERIDES 129 MG/DL (20-135); eGFR > 90 ML/MIN
[2019-08-18] MEDS: Trace element-5 inj. 1 ML in AA 5 %/CALCIUM/LYTES/DEXT 20% 2,000 ML IV SCH (05:40)
--- NOTE | 2019-08-18 06:30 | NUR ---
Problems reprioritized. Patient report given, questions answered & plan of care reviewed with Albino LOYOLA.
--- NOTE | 2019-08-18 06:36 | NUR ---
Patient in room [facility]. I have received report from MILLA NEELY and had the opportunity to ask questions and assume patient care.
[2019-08-18 07:00] VITALS: BP 155/80
[2019-08-18] MEDS: pantoprazole 40 MG vial IV SCH ×2 (07:09→20:19)
[2019-08-18] MEDS: lactobacillus rhamnosus 10,000 MMU CELLS/CAPSULE PO SCH ×2 (07:09→20:27)
[2019-08-18] MEDS: metroNIDAZOLE-Flagyl 500mg/NS 100 ML IV SCH ×2 (07:09→16:39)
[2019-08-18] MEDS: potassium Cl 20 mEq SR tablet PO PRN ×3 (07:09→20:26)
[2019-08-18] MEDS: levoTHYROXINE 88mcg tablet PO SCH (07:09)
[2019-08-18] MEDS: ketorolac tromethamine 15mg/ml inj. IV PRN (07:09)
[2019-08-18] MEDS: methylPREDNISolone sod succ 125mg/2ml vial IV SCH (07:10)
[2019-08-18] MEDS: multivitamins, therapeutics tablet PO SCH (07:24)
[2019-08-18] MEDS: NUT.TX.IMPAIRED DIGEST FXN (Ensure Clear) 237 ML PO SCH ×3 (07:24→18:00)
[2019-08-18] MEDS: K and/or MAG REPLACEMENT MC SCH ×2 (07:24→20:00)
[2019-08-18] MEDS: levoFLOXACIN-Levaquin 500mg/D5 100 ML IV SCH (08:14)
[2019-08-18] MEDS: zinc oxide ointment 30gm tube TP SCH ×2 (08:15→20:00)
--- NOTE | 2019-08-18 08:22 | NUR ---
RECEIVED ORDER FOR BLOOD TRANSFUSION. INFORMED DR GARRETT THAT PATIENT IS GNOSTICISM.
[2019-08-18 11:51] VITALS: BP 134/83
--- NOTE | 2019-08-18 13:17 | NUR ---
Ruslan Sheldon in to see patient. He removed dressing to right groin ordered for light pressure dressing to be changed prn soilage. He also gave okay for patient to ambulate.
[2019-08-18] MEDS: FLUoxetine 20mg capsule PO SCH (13:22)
--- NOTE | 2019-08-18 15:27 | NUR ---
Reassessment: Pt abdominal pain and distention persists per MD note. Documented as having BM's w/ 200ml stool 08/16 post-op per EMR. Pt tolerating TPN at goal w/ PALB WNL 21.6. Receiving K replacement per protocol; 3.2 today. Colitis infectious vs ischemic IBD per MD note. S/p GRETA stent. Will monitor for PO diet advancement and nutrition support tolerance post-op. Recommendation: 1. Advance diet as medically indicated to low residue 2. TPN per MD via central line using Clinimix E 5/20 at 70ml/hr goal; separate 20% intralipid infusions to run 12 hours daily at 11ml/hr. To provide; 1680ml fluid, 84g AA, 336g DEX(3.67mg/kg/min), 26g fat, and 1738 total kcals to meet repletion needs. 3. Prealbumin and TG q /; daily wts 4. Monitor for PN tolerance 5. Monitor need for ONS once PO diet advancement 6. Bowel care as needed per MD Addendum: 08/18/19 at [address] Amended: Links added.
--- NOTE | 2019-08-18 16:36 | NUR ---
Copy of patient's colonoscopy report from Dr. Garrett office placed in chart.
[2019-08-18] MEDS: acetaminophen 325mg tablet PO PRN (16:39)
--- NOTE | 2019-08-18 18:46 | NUR ---
Problems reprioritized. Patient report given, questions answered & plan of care reviewed with MILLA Atkins.
--- NOTE | 2019-08-18 18:50 | NUR ---
Patient in room [facility]. I have received report from DARREN LOYOLA and had the opportunity to ask questions and assume patient care.
[2019-08-18 20:00] VITALS: BP 155/68
[2019-08-18] MEDS: epoetin 20,000 units/ml inj IV SCH (20:04)
[2019-08-18] MEDS: fat emulsion IV bag 250 ML IV SCH (20:08)
[2019-08-18] MEDS: lamoTRIgine 100mg tablet PO SCH (20:27)
[2019-08-18] MEDS: traMADol 50MG tablet PO PRN (20:27)
[2019-08-18] MEDS: temazepam 15mg capsule PO PRN (22:10)
[2019-08-19] VITALS: BP 122/54
[2019-08-19] MEDS: metroNIDAZOLE-Flagyl 500mg/NS 100 ML IV SCH ×2 (01:04→07:16)
[2019-08-19] MEDS: traMADol 50MG tablet PO PRN ×3 (04:00→18:23)
[2019-08-19 06:10] LABS: BASOPHILS % (AUTO) 0.2 % (0-1); EOSINOPHILS # (AUTO) 0.1 X10'3 (0-0.9); EOSINOPHILS % (AUTO) 1.3 % (0-6); HEMOGLOBIN 7.1 g/dl (12.0-16.0); LYMPHOCYTES # (AUTO) 1.5 X10'3 (1.1-4.8); LYMPHOCYTES % (AUTO) 16.1 % (21-51); MEAN CORPUSCULAR HEMOGLOBIN 30.4 PG (27.0-31.0); MEAN CORPUSCULAR HGB CONC 34.3 g/dL (33.0-36.5); MEAN CORPUSCULAR VOLUME 88.7 FL (78-98); MEAN PLATELET VOLUME 7.4 FL (7.4-10.4); MONOCYTES # (AUTO) 0.6 X10'3 (0-0.9); MONOCYTES % (AUTO) 6.2 % (2-12); NEUTROPHILS # (AUTO) 7.3 X10'3 (1.8-7.7); NEUTROPHILS % (AUTO) 76.2 % (42-75); PLATELET COUNT 354 X10'3 (140-440); RED BLOOD COUNT 2.32 X10'6 (4.20-5.60); RED CELL DISTRIBUTION WIDTH 15.8 % (11.5-14.5); WHITE BLOOD COUNT 9.6 X10'3 (4.5-11.0)
[2019-08-19 06:15] LABS: HEMATOCRIT 20.6 % (35.0-45.0)
--- NOTE | 2019-08-19 06:20 | NUR ---
Problems reprioritized. Patient report given, questions answered & plan of care reviewed with DARREN LOYOLA.
--- NOTE | 2019-08-19 06:23 | NUR ---
Patient in room [facility]. I have received report from MILLA TAYLOR and had the opportunity to ask questions and assume patient care.
[2019-08-19 06:25] LABS: ALBUMIN 1.8 G/DL (3.4-5.0); ANION GAP 5 (8-16); BLOOD UREA NITROGEN 9 MG/DL (7-18); BUN/CREATININE RATIO 15.8 (6.6-38.0); CALCIUM 7.5 MG/DL (8.5-10.1); CHLORIDE 107 MMOL/L (99-107); CREATININE 0.57 MG/DL (0.40-0.90); GLUCOSE 119 MG/DL (70-104); POTASSIUM 3.4 MMOL/L (3.5-5.1); SODIUM 138 MMOL/L (135-145); TOTAL CARBON DIOXIDE 25.6 MMOL/L (24-32); eGFR > 90 ML/MIN
[2019-08-19] MEDS: Trace element-5 inj. 1 ML in AA 5 %/CALCIUM/LYTES/DEXT 20% 2,000 ML IV SCH (06:59)
[2019-08-19] MEDS: normal saline 1000ml 1,000 ML IV SCH ×2 (06:59→19:40)
[2019-08-19 07:10] VITALS: BP 153/73
[2019-08-19] MEDS: methylPREDNISolone sod succ 125mg/2ml vial IV SCH (07:16)
[2019-08-19] MEDS: levoTHYROXINE 88mcg tablet PO SCH (07:16)
[2019-08-19] MEDS: lactobacillus rhamnosus 10,000 MMU CELLS/CAPSULE PO SCH ×2 (07:16→21:33)
[2019-08-19] MEDS: pantoprazole 40 MG vial IV SCH ×2 (07:16→21:27)
[2019-08-19] MEDS: potassium Cl 20 mEq SR tablet PO PRN ×2 (07:17→12:51)
[2019-08-19] MEDS: K and/or MAG REPLACEMENT MC SCH ×2 (08:00→20:00)
[2019-08-19] MEDS: multivitamins, therapeutics tablet PO SCH (08:00)
[2019-08-19] MEDS: NUT.TX.IMPAIRED DIGEST FXN (Ensure Clear) 237 ML PO SCH ×3 (08:00→18:00)
[2019-08-19] MEDS: zinc oxide ointment 30gm tube TP SCH ×2 (08:35→20:00)
[2019-08-19 12:21] VITALS: BP 140/71
[2019-08-19] MEDS ORDERED: potassium CL 10mEq/100ml bag 100 ML IV PRN (12:45)
[2019-08-19] MEDS ORDERED: magnesium 2GM in 50ml NS 50 ML IV PRN (12:45)
[2019-08-19] MEDS ORDERED: magnesium 4gm in 100ml NS 100 ML IV PRN (12:45)
[2019-08-19] MEDS: FLUoxetine 20mg capsule PO SCH (12:51)
[2019-08-19] MEDS: acetaminophen 325mg tablet PO PRN (14:40)
--- NOTE | 2019-08-19 18:49 | NUR ---
Problems reprioritized. Patient report given, questions answered & plan of care reviewed with MILLA WYATT.
--- NOTE | 2019-08-19 19:28 | NUR ---
Patient in room [facility]. I have received report from Albino LOYOLA and had the opportunity to ask questions and assume patient care.
[2019-08-19 20:00] VITALS: BP 163/79
[2019-08-19] MEDS ORDERED: potassium CL 10mEq/100ml bag 100 ML IV ONE (21:15)
[2019-08-19] MEDS: fat emulsion IV bag 250 ML IV SCH (21:20)
[2019-08-19] MEDS ORDERED: potassium Cl 20 mEq SR tablet PO PRN (21:20)
[2019-08-19] MEDS: lamoTRIgine 100mg tablet PO SCH (21:33)
[2019-08-19] MEDS: temazepam 15mg capsule PO PRN (21:39)
[2019-08-20] VITALS (14 sets, daily range): BP systolic 106–165; BP diastolic 57–89
[2019-08-20 04:54] LABS: BASOPHILS % (AUTO) 0.2 % (0-1); EOSINOPHILS # (AUTO) 0.1 X10'3 (0-0.9); EOSINOPHILS % (AUTO) 1.3 % (0-6); LYMPHOCYTES # (AUTO) 1.4 X10'3 (1.1-4.8); LYMPHOCYTES % (AUTO) 14.5 % (21-51); MEAN CORPUSCULAR HEMOGLOBIN 30.4 PG (27.0-31.0); MEAN CORPUSCULAR HGB CONC 34.5 g/dL (33.0-36.5); MEAN PLATELET VOLUME 7.8 FL (7.4-10.4); MONOCYTES # (AUTO) 0.7 X10'3 (0-0.9); MONOCYTES % (AUTO) 7.2 % (2-12); NEUTROPHILS # (AUTO) 7.3 X10'3 (1.8-7.7); NEUTROPHILS % (AUTO) 76.8 % (42-75); PLATELET COUNT 382 X10'3 (140-440); RED BLOOD COUNT 2.29 X10'6 (4.20-5.60); RED CELL DISTRIBUTION WIDTH 15.8 % (11.5-14.5); WHITE BLOOD COUNT 9.5 X10'3 (4.5-11.0)
[2019-08-20 04:57] LABS: HEMATOCRIT 20.1 % (35.0-45.0)
[2019-08-20 05:06] LABS: ALBUMIN 1.8 G/DL (3.4-5.0); ANION GAP 4 (8-16); BLOOD UREA NITROGEN 10 MG/DL (7-18); BUN/CREATININE RATIO 17.9 (6.6-38.0); CALCIUM 7.6 MG/DL (8.5-10.1); CHLORIDE 107 MMOL/L (99-107); CREATININE 0.56 MG/DL (0.40-0.90); GLUCOSE 119 MG/DL (70-104); POTASSIUM 3.6 MMOL/L (3.5-5.1); SODIUM 138 MMOL/L (135-145); TOTAL CARBON DIOXIDE 26.6 MMOL/L (24-32); eGFR > 90 ML/MIN
--- NOTE | 2019-08-20 06:26 | NUR ---
Patient in room [facility]. I have received report from Heaven LOYOLA and had the opportunity to ask questions and assume patient care.
--- NOTE | 2019-08-20 06:54 | NUR ---
Problems reprioritized. Patient report given, questions answered & plan of care reviewed with Nicol LOYOLA.
--- NOTE | 2019-08-20 07:16 | NUR ---
Patient in room [facility]. I have received report from Nicol LOYOLA and had the opportunity to ask questions and assume patient care.
[2019-08-20] MEDS: multivitamins, therapeutics tablet PO SCH (08:00)
[2019-08-20] MEDS: K and/or MAG REPLACEMENT MC SCH ×2 (08:00→20:00)
[2019-08-20] MEDS: NUT.TX.IMPAIRED DIGEST FXN (Ensure Clear) 237 ML PO SCH ×3 (08:00→18:01)
[2019-08-20] MEDS: zinc oxide ointment 30gm tube TP SCH ×2 (08:00→20:00)
[2019-08-20] MEDS: traMADol 50MG tablet PO PRN ×2 (08:19→19:20)
[2019-08-20] MEDS: lactobacillus rhamnosus 10,000 MMU CELLS/CAPSULE PO SCH ×2 (08:19→20:14)
[2019-08-20] MEDS: levoTHYROXINE 88mcg tablet PO SCH (08:20)
[2019-08-20] MEDS: methylPREDNISolone sod succ 125mg/2ml vial IV SCH (08:21)
[2019-08-20] MEDS: pantoprazole 40 MG vial IV SCH ×2 (08:21→20:14)
[2019-08-20] MEDS: Trace element-5 inj. 1 ML in AA 5 %/CALCIUM/LYTES/DEXT 20% 2,000 ML IV SCH (08:23)
[2019-08-20] MEDS: normal saline 1000ml 1,000 ML IV SCH (08:42)
--- NOTE | 2019-08-20 10:11 | NUR ---
Reassessment: Pt temporarily had an active clear liquid diet documented with 25% PO intake at dinner last night however currently NPO for OR pending sigmoidoscopy. Pt continues tolerating TPN at goal rate with no s/s refeeding. Prealbumin WNL as of 08/18. Patient's wt is up 4 kg since admit, bed scale v/s standing scale, however it's possible that wt is fluctuating r/t fluids as pt fluctuates with negative and positive fluid balance. LBM 08/19, diarrhea improving per MD notes. Pt denies N/V however c/o general abdominal pain. Pt receiving routine steroids for possible IBD. No further nutrition intervention at this time. Will continue to follow closely. Recommendation: 1. Advance diet as medically indicated to low residue 2. TPN per MD via central line using Clinimix E /20 at 70ml/hr goal; separate 20% intralipid infusions to run 12 hours daily at 11ml/hr. To provide; 1680ml fluid, 84g AA, 336g DEX(3.67mg/kg/min), 26g fat, and 1738 total kcals to meet repletion needs. 3. Prealbumin and TG q /; daily wts 4. Monitor for PN tolerance 5. Monitor need for ONS once PO diet advancement 6. Bowel care as needed per MD Addendum: 08/20/19 at [address] Amended: Links added.
[2019-08-20] MEDS ORDERED: fentaNYL/PF 50MCG/1 ML 2ML syringe ONE (12:38)
[2019-08-20] MEDS ORDERED: MIDAZolam 5mg/5ml vial ONE (12:38)
--- NOTE | 2019-08-20 12:57 | NUR ---
patient seen by Dr vega, results came back from sent out specimen that patient is cdiff positive.patient placed in isolation, will continue to monitor.
[2019-08-20] MEDS: vancomycin 250MG/10ML UD oral solution 10ML BOTTLE PO SCH ×2 (14:42→20:14)
[2019-08-20] MEDS: FLUoxetine 20mg capsule PO SCH (14:42)
--- NOTE | 2019-08-20 18:44 | NUR ---
Problems reprioritized. Patient report given, questions answered & plan of care reviewed with Pat RN.
[2019-08-20] MEDS: fat emulsion IV bag 250 ML IV SCH (21:33)
[2019-08-20] MEDS: lamoTRIgine 100mg tablet PO SCH (21:33)
[2019-08-20] MEDS: temazepam 15mg capsule PO PRN (21:36)
[2019-08-21] VITALS: BP 150/79
[2019-08-21] MEDS: traMADol 50MG tablet PO PRN ×3 (02:10→20:39)
[2019-08-21] MEDS: vancomycin 250MG/10ML UD oral solution 10ML BOTTLE PO SCH ×4 (02:11→20:07)
[2019-08-21 05:36] LABS: BASOPHILS % (AUTO) 0.2 % (0-1); EOSINOPHILS # (AUTO) 0.1 X10'3 (0-0.9); EOSINOPHILS % (AUTO) 1.2 % (0-6); HEMOGLOBIN 7.2 g/dl (12.0-16.0); LYMPHOCYTES # (AUTO) 1.3 X10'3 (1.1-4.8); LYMPHOCYTES % (AUTO) 12.8 % (21-51); MEAN CORPUSCULAR HEMOGLOBIN 31.2 PG (27.0-31.0); MEAN CORPUSCULAR HGB CONC 34.9 g/dL (33.0-36.5); MEAN CORPUSCULAR VOLUME 89.4 FL (78-98); MEAN PLATELET VOLUME 7.5 FL (7.4-10.4); MONOCYTES # (AUTO) 0.9 X10'3 (0-0.9); MONOCYTES % (AUTO) 8.3 % (2-12); NEUTROPHILS % (AUTO) 77.5 % (42-75); PLATELET COUNT 423 X10'3 (140-440); RED CELL DISTRIBUTION WIDTH 16.5 % (11.5-14.5); WHITE BLOOD COUNT 10.3 X10'3 (4.5-11.0)
[2019-08-21 05:49] LABS: HEMATOCRIT 20.6 % (35.0-45.0)
[2019-08-21 05:59] LABS: ALANINE AMINOTRANSFERASE 34 U/L (12-78); ALBUMIN/GLOBULIN RATIO 0.8 (1.1-1.5); ALKALINE PHOSPHATASE 62 IU/L (46-116); ANION GAP 5 (8-16); ASPARTATE AMINO TRANSFERASE 30 U/L (10-37); BILIRUBIN,TOTAL 0.4 MG/DL (0.1-1.0); BLOOD UREA NITROGEN 11 MG/DL (7-18); BUN/CREATININE RATIO 18.3 (6.6-38.0); CALCIUM 7.6 MG/DL (8.5-10.1); CHLORIDE 105 MMOL/L (99-107); GLUCOSE 104 MG/DL (70-104); MAGNESIUM 1.7 MG/DL (1.5-2.4); PHOSPHORUS 3.7 MG/DL (2.3-4.5); POTASSIUM 3.4 MMOL/L (3.5-5.1); PREALBUMIN 32.3 MG/DL (19-36); SODIUM 137 MMOL/L (135-145); TOTAL CARBON DIOXIDE 27.2 MMOL/L (24-32); TOTAL PROTEIN 4.6 G/DL (6.4-8.2); eGFR > 90 ML/MIN
--- NOTE | 2019-08-21 06:26 | NUR ---
Patient in room [facility]. I have received report from Pat RN and had the opportunity to ask questions and assume patient care.
[2019-08-21 07:00] VITALS: BP 148/76
[2019-08-21] MEDS: HYDROmorphone inj. 0.5 MG/0.5 ML DISP.SYRIN IV PRN ×2 (07:08→14:28)
[2019-08-21] MEDS: pantoprazole 40 MG vial IV SCH ×2 (07:11→20:07)
[2019-08-21] MEDS: lactobacillus rhamnosus 10,000 MMU CELLS/CAPSULE PO SCH ×2 (07:17→20:08)
[2019-08-21] MEDS: potassium Cl 20 mEq SR tablet PO PRN ×2 (07:17→14:27)
[2019-08-21] MEDS: levoTHYROXINE 88mcg tablet PO SCH (07:17)
[2019-08-21] MEDS: zinc oxide ointment 30gm tube TP SCH ×2 (08:00→20:00)
[2019-08-21] MEDS: NUT.TX.IMPAIRED DIGEST FXN (Ensure Clear) 237 ML PO SCH ×3 (08:00→18:44)
[2019-08-21] MEDS: K and/or MAG REPLACEMENT MC SCH ×2 (08:00→20:00)
[2019-08-21] MEDS: multivitamins, therapeutics tablet PO SCH (08:00)
[2019-08-21] MEDS: FLUoxetine 20mg capsule PO SCH (10:59)
[2019-08-21 11:00] VITALS: BP 152/80
[2019-08-21] MEDS: Trace element-5 inj. 1 ML in AA 5 %/CALCIUM/LYTES/DEXT 20% 2,000 ML IV SCH (13:15)
[2019-08-21 18:00] VITALS: BP 153/89
--- NOTE | 2019-08-21 18:43 | NUR ---
Problems reprioritized. Patient report given, questions answered & plan of care reviewed with Candido LOYOLA.
[2019-08-21] MEDS: fat emulsion IV bag 250 ML IV SCH (20:08)
[2019-08-21] MEDS: lamoTRIgine 100mg tablet PO SCH (20:08)
[2019-08-21] MEDS: temazepam 15mg capsule PO PRN (20:39)
[2019-08-22] VITALS: BP 155/76
[2019-08-22] MEDS: vancomycin 250MG/10ML UD oral solution 10ML BOTTLE PO SCH ×4 (02:51→20:57)
[2019-08-22] MEDS: traMADol 50MG tablet PO PRN ×3 (02:59→16:24)
--- NOTE | 2019-08-22 06:26 | NUR ---
Problems reprioritized. Patient report given, questions answered & plan of care reviewed with Kamala LOYOLA.
[2019-08-22 06:35] LABS: BASOPHILS % (AUTO) 0.4 % (0-1); EOSINOPHILS # (AUTO) 0.2 X10'3 (0-0.9); EOSINOPHILS % (AUTO) 1.8 % (0-6); HEMOGLOBIN 7.2 g/dl (12.0-16.0); LYMPHOCYTES # (AUTO) 1.2 X10'3 (1.1-4.8); LYMPHOCYTES % (AUTO) 12.1 % (21-51); MEAN CORPUSCULAR HEMOGLOBIN 30.3 PG (27.0-31.0); MEAN CORPUSCULAR HGB CONC 33.9 g/dL (33.0-36.5); MEAN CORPUSCULAR VOLUME 89.3 FL (78-98); MEAN PLATELET VOLUME 7.8 FL (7.4-10.4); MONOCYTES # (AUTO) 0.9 X10'3 (0-0.9); NEUTROPHILS # (AUTO) 7.6 X10'3 (1.8-7.7); NEUTROPHILS % (AUTO) 76.7 % (42-75); PLATELET COUNT 452 X10'3 (140-440); RED BLOOD COUNT 2.37 X10'6 (4.20-5.60); RED CELL DISTRIBUTION WIDTH 16.5 % (11.5-14.5); WHITE BLOOD COUNT 9.9 X10'3 (4.5-11.0)
[2019-08-22 06:36] LABS: ANION GAP 5 (8-16); BLOOD UREA NITROGEN 11 MG/DL (7-18); CALCIUM 7.8 MG/DL (8.5-10.1); CHLORIDE 103 MMOL/L (99-107); CREATININE 0.61 MG/DL (0.40-0.90); GLUCOSE 101 MG/DL (70-104); POTASSIUM 3.8 MMOL/L (3.5-5.1); SODIUM 135 MMOL/L (135-145); eGFR > 90 ML/MIN
[2019-08-22 06:45] LABS: HEMATOCRIT 21.2 % (35.0-45.0)
[2019-08-22] MEDS: K and/or MAG REPLACEMENT MC SCH ×2 (06:57→20:00)
[2019-08-22 07:00] VITALS: BP 134/66
[2019-08-22] MEDS: zinc oxide ointment 30gm tube TP SCH ×2 (08:00→20:00)
[2019-08-22] MEDS: NUT.TX.IMPAIRED DIGEST FXN (Ensure Clear) 237 ML PO SCH ×3 (08:00→18:00)
[2019-08-22] MEDS: multivitamins, therapeutics tablet PO SCH (08:00)
[2019-08-22] MEDS: pantoprazole 40 MG vial IV SCH ×2 (08:09→20:57)
[2019-08-22] MEDS: lactobacillus rhamnosus 10,000 MMU CELLS/CAPSULE PO SCH ×2 (08:09→20:57)
[2019-08-22] MEDS: levoTHYROXINE 88mcg tablet PO SCH (08:09)
[2019-08-22 11:00] VITALS: BP 115/49
[2019-08-22] MEDS: FLUoxetine 20mg capsule PO SCH (12:07)
[2019-08-22] MEDS: HYDROmorphone inj. 0.5 MG/0.5 ML DISP.SYRIN IV PRN ×2 (12:08→20:57)
[2019-08-22] MEDS: Trace element-5 inj. 1 ML in AA 5 %/CALCIUM/LYTES/DEXT 20% 2,000 ML IV SCH (14:08)
[2019-08-22 18:00] VITALS: BP 153/72
--- NOTE | 2019-08-22 18:22 | NUR ---
Problems reprioritized. Patient report given, questions answered & plan of care reviewed with ilan girard.
[2019-08-22] MEDS: nystatin 500,000 unit/5ML UD oral suspension PO SCH (20:57)
[2019-08-22] MEDS: fat emulsion IV bag 250 ML IV SCH (20:57)
[2019-08-22] MEDS: lamoTRIgine 100mg tablet PO SCH (20:57)
[2019-08-22] MEDS: temazepam 15mg capsule PO PRN (20:58)
[2019-08-23] MEDS: vancomycin 250MG/10ML UD oral solution 10ML BOTTLE PO SCH ×4 (02:15→21:02)
--- NOTE | 2019-08-23 06:24 | NUR ---
Problems reprioritized. Patient report given, questions answered & plan of care reviewed with Kamala LOYOLA.
[2019-08-23 07:00] VITALS: BP 144/77
[2019-08-23] MEDS: K and/or MAG REPLACEMENT MC SCH ×2 (07:31→20:00)
[2019-08-23] MEDS: levoTHYROXINE 88mcg tablet PO SCH (07:35)
[2019-08-23] MEDS: lactobacillus rhamnosus 10,000 MMU CELLS/CAPSULE PO SCH ×2 (07:35→21:02)
[2019-08-23] MEDS: HYDROmorphone inj. 0.5 MG/0.5 ML DISP.SYRIN IV PRN ×2 (07:36→13:40)
[2019-08-23] MEDS: pantoprazole 40 MG vial IV SCH ×2 (07:36→21:02)
[2019-08-23] MEDS: multivitamins, therapeutics tablet PO SCH (07:42)
[2019-08-23] MEDS: zinc oxide ointment 30gm tube TP SCH ×2 (07:42→20:00)
[2019-08-23] MEDS: NUT.TX.IMPAIRED DIGEST FXN (Ensure Clear) 237 ML PO SCH ×3 (07:42→18:00)
[2019-08-23] MEDS: nystatin 500,000 unit/5ML UD oral suspension PO SCH ×3 (09:12→21:02)
[2019-08-23] MEDS: acetaminophen 325mg tablet PO PRN ×2 (10:36→18:45)
[2019-08-23 11:24] VITALS: BP 115/64
--- NOTE | 2019-08-23 11:38 | NUR ---
Reassessment: Patient's diet has been advanced to full liquid and pt documented with average 25% PO intake not meeting nutrient needs however patient's estimated nutrient needs are being met with TPN. Per MD notes pt with no N/V and abdominal pain is improving. LBM 08/22. Will continue to follow closely. Recommendation: 1. Advance diet as medically indicated to low residue 2. TPN per MD via central line using Clinimix E 01/20 at 70ml/hr goal; separate 20% intralipid infusions to run 12 hours daily at 11ml/hr. To provide; 1680ml fluid, 84g AA, 336g DEX(3.67mg/kg/min), 26g fat, and 1738 total kcals to meet repletion needs. 3. Prealbumin and TG q /; daily wts 4. Monitor for PN tolerance 5. Monitor need for ONS once PO diet advancement 6. Bowel care as needed per MD Addendum: 08/23/19 at [address] Amended: Links added.
[2019-08-23] MEDS: FLUoxetine 20mg capsule PO SCH (13:01)
[2019-08-23 18:00] VITALS: BP 124/66
--- NOTE | 2019-08-23 18:10 | NUR ---
Problems reprioritized. Patient report given, questions answered & plan of care reviewed with RIGO LOYOLA.
[2019-08-23] MEDS: lamoTRIgine 100mg tablet PO SCH (21:02)
[2019-08-23] MEDS: temazepam 15mg capsule PO PRN (21:02)
[2019-08-23] MEDS: Trace element-5 inj. 1 ML in AA 5 %/CALCIUM/LYTES/DEXT 20% 2,000 ML IV SCH (21:03)
[2019-08-23] MEDS: fat emulsion IV bag 250 ML IV SCH (21:03)
[2019-08-24] VITALS: BP 113/65
[2019-08-24] MEDS: vancomycin 250MG/10ML UD oral solution 10ML BOTTLE PO SCH ×4 (02:30→21:28)
[2019-08-24 05:52] LABS: BASOPHILS % (AUTO) 0.6 % (0-1); EOSINOPHILS # (AUTO) 0.2 X10'3 (0-0.9); EOSINOPHILS % (AUTO) 2.2 % (0-6); HEMATOCRIT 23.4 % (35.0-45.0); LYMPHOCYTES # (AUTO) 1.2 X10'3 (1.1-4.8); LYMPHOCYTES % (AUTO) 16.7 % (21-51); MEAN PLATELET VOLUME 7.7 FL (7.4-10.4); MONOCYTES # (AUTO) 0.7 X10'3 (0-0.9); MONOCYTES % (AUTO) 9.7 % (2-12); NEUTROPHILS % (AUTO) 70.8 % (42-75); PLATELET COUNT 506 X10'3 (140-440); RED BLOOD COUNT 2.58 X10'6 (4.20-5.60)
--- NOTE | 2019-08-24 06:26 | NUR ---
Problems reprioritized. Patient report given, questions answered & plan of care reviewed with Kamala LOYOLA.
[2019-08-24 07:39] VITALS: BP 135/70
[2019-08-24] MEDS: K and/or MAG REPLACEMENT MC SCH ×2 (07:57→21:08)
[2019-08-24] MEDS: zinc oxide ointment 30gm tube TP SCH ×2 (07:58→21:29)
[2019-08-24] MEDS: NUT.TX.IMPAIRED DIGEST FXN (Ensure Clear) 237 ML PO SCH ×3 (07:58→18:00)
[2019-08-24] MEDS: HYDROmorphone inj. 0.5 MG/0.5 ML DISP.SYRIN IV PRN (08:00)
[2019-08-24] MEDS: multivitamins, therapeutics tablet PO SCH (08:00)
[2019-08-24] MEDS: nystatin 500,000 unit/5ML UD oral suspension PO SCH ×3 (08:03→21:29)
[2019-08-24] MEDS: levoTHYROXINE 88mcg tablet PO SCH (08:03)
[2019-08-24] MEDS: lactobacillus rhamnosus 10,000 MMU CELLS/CAPSULE PO SCH ×2 (08:03→21:29)
[2019-08-24] MEDS: pantoprazole 40 MG vial IV SCH ×2 (08:03→21:29)
[2019-08-24] MEDS: traMADol 50MG tablet PO PRN ×2 (11:02→22:12)
[2019-08-24 11:39] VITALS: BP 142/74
[2019-08-24] MEDS: FLUoxetine 20mg capsule PO SCH (13:20)
[2019-08-24] MEDS: acetaminophen 325mg tablet PO PRN (14:04)
--- NOTE | 2019-08-24 18:09 | NUR ---
Problems reprioritized. Patient report given, questions answered & plan of care reviewed with BELLE LOYOLA.
[2019-08-24 20:00] VITALS: BP 139/69
[2019-08-24] MEDS: fat emulsion IV bag 250 ML IV SCH (21:29)
[2019-08-24] MEDS: lamoTRIgine 100mg tablet PO SCH (21:29)
[2019-08-24] MEDS: temazepam 15mg capsule PO PRN (22:11)
[2019-08-24] MEDS: Trace element-5 inj. 1 ML in AA 5 %/CALCIUM/LYTES/DEXT 20% 2,000 ML IV SCH (22:13)
[2019-08-25] VITALS: BP 107/58
[2019-08-25] MEDS: vancomycin 250MG/10ML UD oral solution 10ML BOTTLE PO SCH ×4 (01:55→20:25)
--- NOTE | 2019-08-25 04:10 | NUR ---
Patient's 24 hour urine collection started at 0400. Patient instructed about her urine and states understanding to pour in container that is sitting on ice.
[2019-08-25] MEDS: traMADol 50MG tablet PO PRN ×2 (04:42→11:03)
--- NOTE | 2019-08-25 06:15 | NUR ---
Patient in room [facility]. I have received report from MILLA Poon and had the opportunity to ask questions and assume patient care.
[2019-08-25 06:30] VITALS: BP 122/63
--- NOTE | 2019-08-25 06:57 | NUR ---
Problems reprioritized. Patient report given, questions answered & plan of care reviewed with Kirsten RN.
[2019-08-25] MEDS: NUT.TX.IMPAIRED DIGEST FXN (Ensure Clear) 237 ML PO SCH (08:00)
[2019-08-25 08:01] LABS: HEMATOCRIT 23.6 % (35.0-45.0); HEMOGLOBIN 8.2 g/dl (12.0-16.0); WHITE BLOOD COUNT 5.1 X10'3 (4.5-11.0)
[2019-08-25 08:03] LABS: BASOPHILS # (AUTO) 0.1 X10'3 (0-0.2); BASOPHILS % (AUTO) 1.1 % (0-1); EOSINOPHILS # (AUTO) 0.2 X10'3 (0-0.9); EOSINOPHILS % (AUTO) 3.1 % (0-6); LYMPHOCYTES # (AUTO) 1.2 X10'3 (1.1-4.8); LYMPHOCYTES % (AUTO) 23.1 % (21-51); MEAN CORPUSCULAR HEMOGLOBIN 31.4 PG (27.0-31.0); MEAN CORPUSCULAR HGB CONC 34.7 g/dL (33.0-36.5); MEAN CORPUSCULAR VOLUME 90.5 FL (78-98); MEAN PLATELET VOLUME 7.5 FL (7.4-10.4); MONOCYTES # (AUTO) 0.6 X10'3 (0-0.9); MONOCYTES % (AUTO) 11.7 % (2-12); NEUTROPHILS # (AUTO) 3.1 X10'3 (1.8-7.7); PLATELET COUNT 489 X10'3 (140-440); RED BLOOD COUNT 2.61 X10'6 (4.20-5.60)
[2019-08-25] MEDS: zinc oxide ointment 30gm tube TP SCH (09:55)
[2019-08-25] MEDS: nystatin 500,000 unit/5ML UD oral suspension PO SCH ×3 (10:01→20:25)
[2019-08-25] MEDS: lactobacillus rhamnosus 10,000 MMU CELLS/CAPSULE PO SCH ×2 (10:01→20:25)
[2019-08-25] MEDS: multivitamins, therapeutics tablet PO SCH (10:01)
[2019-08-25] MEDS: levoTHYROXINE 88mcg tablet PO SCH (10:02)
[2019-08-25] MEDS: pantoprazole 40 MG vial IV SCH ×2 (10:02→20:26)
[2019-08-25 10:10] LABS: ALANINE AMINOTRANSFERASE 40 U/L (12-78); ALBUMIN 2.3 G/DL (3.4-5.0); ALBUMIN/GLOBULIN RATIO 0.7 (1.1-1.5); ALKALINE PHOSPHATASE 80 IU/L (46-116); ANION GAP 9 (8-16); ASPARTATE AMINO TRANSFERASE 34 U/L (10-37); BILIRUBIN,TOTAL 0.3 MG/DL (0.1-1.0); BLOOD UREA NITROGEN 13 MG/DL (7-18); CALCIUM 7.9 MG/DL (8.5-10.1); CHLORIDE 102 MMOL/L (99-107); CREATININE 0.65 MG/DL (0.40-0.90); GLUCOSE 115 MG/DL (70-104); MAGNESIUM 1.7 MG/DL (1.5-2.4); PHOSPHORUS 3.9 MG/DL (2.3-4.5); POTASSIUM 3.9 MMOL/L (3.5-5.1); SODIUM 137 MMOL/L (135-145); TOTAL CARBON DIOXIDE 25.9 MMOL/L (24-32); TOTAL PROTEIN 5.6 G/DL (6.4-8.2); TRIGLYCERIDES 107 MG/DL (20-135); eGFR > 90 ML/MIN
[2019-08-25] MEDS: K and/or MAG REPLACEMENT MC SCH ×2 (10:21→20:00)
[2019-08-25 11:00] VITALS: BP 146/60
[2019-08-25] MEDS: FLUoxetine 20mg capsule PO SCH (11:03)
[2019-08-25 11:19] LABS: TOTAL CELLS COUNTED 100
[2019-08-25 11:20] LABS: ANISOCYTOSIS 1+; PLATELET ESTIMATE INCREASED
[2019-08-25 11:21] LABS: BURR CELLS FEW; POLYCHROMASIA 1+
[2019-08-25] MEDS: HYDROcodone/acetaminophen 5mg/325mg tablet PO PRN ×2 (14:12→20:25)
[2019-08-25] MEDS: epoetin 20,000 units/ml inj IV SCH (18:12)
--- NOTE | 2019-08-25 18:35 | NUR ---
Problems reprioritized. Patient report given, questions answered & plan of care reviewed with MILLA Poon.
[2019-08-25 20:00] VITALS: BP 144/72
[2019-08-25] MEDS: lamoTRIgine 100mg tablet PO SCH (20:26)
[2019-08-25] MEDS: fat emulsion IV bag 250 ML IV SCH (20:26)
[2019-08-25] MEDS: temazepam 15mg capsule PO PRN (20:40)
[2019-08-25] MEDS: Trace element-5 inj. 1 ML in AA 5 %/CALCIUM/LYTES/DEXT 20% 2,000 ML IV SCH (22:51)
[2019-08-26 00:18] VITALS: BP 115/67
[2019-08-26] MEDS: vancomycin 250MG/10ML UD oral solution 10ML BOTTLE PO SCH ×4 (02:27→19:55)
--- NOTE | 2019-08-26 04:10 | NUR ---
24 hour urine collection finished and sent to lab.
[2019-08-26 04:39] LABS: UREA NITROGEN 24HR,URINE 11.8 GM/24HR (7-20)
[2019-08-26] MEDS: HYDROcodone/acetaminophen 5mg/325mg tablet PO PRN ×3 (04:45→19:56)
--- NOTE | 2019-08-26 06:15 | NUR ---
Patient in room [facility]. I have received report from MILLA Poon and had the opportunity to ask questions and assume patient care.
[2019-08-26 06:30] VITALS: BP 111/66
--- NOTE | 2019-08-26 06:31 | NUR ---
Problems reprioritized. Patient report given, questions answered & plan of care reviewed with Kirsten RN.
[2019-08-26] MEDS: K and/or MAG REPLACEMENT MC SCH ×2 (07:18→19:40)
[2019-08-26] MEDS: nystatin 500,000 unit/5ML UD oral suspension PO SCH ×3 (10:33→21:39)
[2019-08-26] MEDS: pantoprazole 40 MG vial IV SCH ×2 (10:33→19:55)
[2019-08-26] MEDS: levoTHYROXINE 88mcg tablet PO SCH (10:35)
[2019-08-26] MEDS: FLUoxetine 20mg capsule PO SCH (10:35)
[2019-08-26] MEDS: lactobacillus rhamnosus 10,000 MMU CELLS/CAPSULE PO SCH ×2 (10:35→19:55)
[2019-08-26 11:00] VITALS: BP 144/71
--- NOTE | 2019-08-26 11:55 | NUR ---
Reassessment: Pt currently on TPN at goal rate and tolerating however PO diet has been advanced to regular and TPN weaning to begin today per MD notes. Pt documented with 25% PO intake since diet advancement not meeting nutrient needs. Per MD notes pt with oral thrush, likely impacting PO intake. Pt receiving PO meds for thrush. Abdominal pain controlled and pt denies N/V per MD note. LBM 08/24. Will continue to follow closely. Recommendation: 1. Consider PO diet change to low residue given C.diff with diarrhea 2. TPN per MD via central line using Clinimix E 01/20 at 70ml/hr goal; separate 20% intralipid infusions to run 12 hours daily at 11ml/hr. To provide; 1680ml fluid, 84g AA, 336g DEX(3.67mg/kg/min), 26g fat, and 1738 total kcals to meet repletion needs. 3. Prealbumin and TG q /; daily wts 4. Monitor for PN tolerance 5. Monitor need for ONS once PO diet advancement 6. Bowel care as needed per MD 7. Wean TPN per MD Addendum: 08/26/19 at [address] Amended: Links added.
[2019-08-26] MEDS: traMADol 50MG tablet PO PRN ×2 (14:17→23:16)
[2019-08-26 18:00] VITALS: BP 142/81
--- NOTE | 2019-08-26 18:30 | NUR ---
Problems reprioritized. Patient report given, questions answered & plan of care reviewed with Jazmin Rivera RN & Yanelis RN.
[2019-08-26] MEDS: fat emulsion IV bag 250 ML IV SCH (19:39)
--- NOTE | 2019-08-26 20:04 | NUR ---
Pt c/o burning with urination. Received order from for UA. Sent to pharmacy.
[2019-08-26 20:19] LABS: CLARITY,URINE CLEAR (Clear); COLOR,URINE YELLOW (Yellow); GLUCOSE, URINE NEGATIVE (Neg); KETONES,URINE NEGATIVE (Neg); LEUKOCYTE ESTERASE ,URINE NEGATIVE (Neg); NITRITES, URINE NEGATIVE (Neg); OCCULT BLOOD,URINE NEGATIVE (Neg); PH,URINE 6.5 (4.8-8.0); PROTEIN,URINE NEGATIVE (Neg); UROBILINOGEN,URINE 0.2 E.U/dL (0.2-1.0)
[2019-08-26 20:25] LABS: UA COLLECTION TYPE CLN CATCH MIDSTREAM
[2019-08-26] MEDS: lamoTRIgine 100mg tablet PO SCH (21:39)
[2019-08-26] MEDS: temazepam 15mg capsule PO PRN (21:39)
[2019-08-26 23:58] VITALS: BP 101/66
[2019-08-27] MEDS: vancomycin 250MG/10ML UD oral solution 10ML BOTTLE PO SCH ×4 (02:39→21:17)
[2019-08-27] MEDS: HYDROcodone/acetaminophen 5mg/325mg tablet PO PRN ×2 (03:27→10:57)
[2019-08-27] MEDS: acetaminophen 325mg tablet PO PRN (05:54)
--- NOTE | 2019-08-27 06:05 | NUR ---
Patient in room [facility]. I have received report from Jazmin Rivera RN & Yanelis RN and had the opportunity to ask questions and assume patient care.
[2019-08-27 06:30] VITALS: BP 109/59
--- NOTE | 2019-08-27 06:38 | NUR ---
Problems reprioritized. Patient report given, questions answered & plan of care reviewed with MILLA Curtis.
[2019-08-27] MEDS: K and/or MAG REPLACEMENT MC SCH ×2 (06:57→21:28)
[2019-08-27] MEDS: pantoprazole 40 MG vial IV SCH ×2 (10:27→21:21)
[2019-08-27] MEDS: nystatin 500,000 unit/5ML UD oral suspension PO SCH ×3 (10:27→21:17)
[2019-08-27] MEDS: lactobacillus rhamnosus 10,000 MMU CELLS/CAPSULE PO SCH ×2 (10:27→21:17)
[2019-08-27] MEDS: levoTHYROXINE 88mcg tablet PO SCH (10:27)
[2019-08-27 11:00] VITALS: BP 132/82
[2019-08-27 11:24] LABS: HEMATOCRIT 24.8 % (35.0-45.0); HEMOGLOBIN 8.3 g/dl (12.0-16.0); MEAN CORPUSCULAR HGB CONC 33.5 g/dL (33.0-36.5); MEAN CORPUSCULAR VOLUME 92.4 FL (78-98); MEAN PLATELET VOLUME 7.2 FL (7.4-10.4); PLATELET COUNT 427 X10'3 (140-440); RED BLOOD COUNT 2.68 X10'6 (4.20-5.60); RED CELL DISTRIBUTION WIDTH 18.6 % (11.5-14.5); WHITE BLOOD COUNT 4.9 X10'3 (4.5-11.0)
[2019-08-27] MEDS: FLUoxetine 20mg capsule PO SCH (11:58)
[2019-08-27] MEDS: traMADol 50MG tablet PO PRN ×2 (14:01→21:16)
--- NOTE | 2019-08-27 18:30 | NUR ---
Problems reprioritized. Patient report given, questions answered & plan of care reviewed with Bernadette Fleming RN.
--- NOTE | 2019-08-27 18:32 | NUR ---
Patient in room [facility]. I have received report from ADELAIDA LOYOLA and had the opportunity to ask questions and assume patient care.
[2019-08-27 20:00] VITALS: BP 117/73
[2019-08-27] MEDS: temazepam 15mg capsule PO PRN (21:16)
[2019-08-27] MEDS: lamoTRIgine 100mg tablet PO SCH (21:17)
[2019-08-28] VITALS: BP 120/75
[2019-08-28] MEDS: vancomycin 250MG/10ML UD oral solution 10ML BOTTLE PO SCH ×4 (02:13→20:39)
[2019-08-28] MEDS: HYDROcodone/acetaminophen 5mg/325mg tablet PO PRN ×2 (02:16→20:39)
[2019-08-28 06:10] LABS: BASOPHILS % (AUTO) 0.9 % (0-1); EOSINOPHILS # (AUTO) 0.2 X10'3 (0-0.9); EOSINOPHILS % (AUTO) 3.7 % (0-6); HEMATOCRIT 24.7 % (35.0-45.0); HEMOGLOBIN 8.3 g/dl (12.0-16.0); LYMPHOCYTES # (AUTO) 1.5 X10'3 (1.1-4.8); LYMPHOCYTES % (AUTO) 34.7 % (21-51); MEAN CORPUSCULAR HEMOGLOBIN 31.3 PG (27.0-31.0); MEAN CORPUSCULAR HGB CONC 33.7 g/dL (33.0-36.5); MEAN CORPUSCULAR VOLUME 92.8 FL (78-98); MEAN PLATELET VOLUME 7.9 FL (7.4-10.4); MONOCYTES # (AUTO) 0.5 X10'3 (0-0.9); MONOCYTES % (AUTO) 11.6 % (2-12); NEUTROPHILS # (AUTO) 2.1 X10'3 (1.8-7.7); NEUTROPHILS % (AUTO) 49.1 % (42-75); PLATELET COUNT 386 X10'3 (140-440); RED BLOOD COUNT 2.66 X10'6 (4.20-5.60); WHITE BLOOD COUNT 4.4 X10'3 (4.5-11.0)
[2019-08-28 06:23] LABS: ALANINE AMINOTRANSFERASE 36 U/L (12-78); ALBUMIN 2.5 G/DL (3.4-5.0); ALBUMIN/GLOBULIN RATIO 0.8 (1.1-1.5); ALKALINE PHOSPHATASE 91 IU/L (46-116); ANION GAP 9 (8-16); ASPARTATE AMINO TRANSFERASE 25 U/L (10-37); BILIRUBIN,TOTAL 0.4 MG/DL (0.1-1.0); BLOOD UREA NITROGEN 11 MG/DL (7-18); BUN/CREATININE RATIO 14.3 (6.6-38.0); CALCIUM 8.1 MG/DL (8.5-10.1); CHLORIDE 102 MMOL/L (99-107); CREATININE 0.77 MG/DL (0.40-0.90); GLUCOSE 82 MG/DL (70-104); MAGNESIUM 1.7 MG/DL (1.5-2.4); POTASSIUM 3.8 MMOL/L (3.5-5.1); SODIUM 137 MMOL/L (135-145); TOTAL CARBON DIOXIDE 25.6 MMOL/L (24-32); TOTAL PROTEIN 5.8 G/DL (6.4-8.2); eGFR 75 ML/MIN
--- NOTE | 2019-08-28 06:30 | NUR ---
Problems reprioritized. Patient report given, questions answered & plan of care reviewed with MISHA LOYOLA.
[2019-08-28] MEDS: K and/or MAG REPLACEMENT MC SCH ×2 (06:42→20:00)
[2019-08-28] MEDS: ondansetron/PF 4mg/2ml inj IV PRN (06:56)
[2019-08-28] MEDS: pantoprazole 40 MG vial IV SCH ×2 (06:56→20:39)
[2019-08-28] MEDS: mag hydrox/Alum hydrox/simeth 30ml oral suspension PO PRN (06:57)
[2019-08-28] MEDS: nystatin 500,000 unit/5ML UD oral suspension PO SCH ×3 (06:57→20:38)
[2019-08-28] MEDS: lactobacillus rhamnosus 10,000 MMU CELLS/CAPSULE PO SCH ×2 (06:57→20:39)
[2019-08-28] MEDS: levoTHYROXINE 88mcg tablet PO SCH (06:57)
[2019-08-28 08:00] VITALS: BP 128/71
[2019-08-28 08:22] LABS: PLATELET ESTIMATE NORMAL
[2019-08-28 08:23] LABS: ANISOCYTOSIS 2+; HYPOCHROMASIA 1+
[2019-08-28 11:00] VITALS: BP 128/70
[2019-08-28] MEDS: FLUoxetine 20mg capsule PO SCH (13:21)
[2019-08-28] MEDS: traMADol 50MG tablet PO PRN (13:21)
[2019-08-28 18:00] VITALS: BP 132/60
--- NOTE | 2019-08-28 18:14 | NUR ---
Problems reprioritized. Patient report given, questions answered & plan of care reviewed with Hola LOYOLA.
--- NOTE | 2019-08-28 18:40 | NUR ---
Report given to Enrique LOYOLA, not Hola LOYOLA. Enrique will be assuming care.
--- NOTE | 2019-08-28 18:41 | NUR ---
Patient in room [facility]. I have received report from MILLA Urban and had the opportunity to ask questions and assume patient care.
[2019-08-28] MEDS: lamoTRIgine 100mg tablet PO SCH (20:39)
[2019-08-28] MEDS: temazepam 15mg capsule PO PRN (20:39)
[2019-08-29] VITALS: BP 109/69
[2019-08-29] MEDS: vancomycin 250MG/10ML UD oral solution 10ML BOTTLE PO SCH ×3 (01:27→14:23)
[2019-08-29] MEDS: acetaminophen 325mg tablet PO PRN ×2 (01:27→09:26)
[2019-08-29] MEDS: ondansetron/PF 4mg/2ml inj IV PRN (03:56)
--- NOTE | 2019-08-29 06:03 | NUR ---
Problems reprioritized. Patient report given, questions answered & plan of care reviewed with Drea Sarmiento.
--- NOTE | 2019-08-29 06:05 | NUR ---
Patient in room [facility]. I have received report from MILLA Nunez and had the opportunity to ask questions and assume patient care.
[2019-08-29 07:00] VITALS: BP 134/74
[2019-08-29] MEDS: K and/or MAG REPLACEMENT MC SCH (08:00)
[2019-08-29] MEDS: nystatin 500,000 unit/5ML UD oral suspension PO SCH ×2 (08:17→14:23)
[2019-08-29] MEDS: pantoprazole 40 MG vial IV SCH (08:17)
[2019-08-29] MEDS: levoTHYROXINE 88mcg tablet PO SCH (08:17)
[2019-08-29] MEDS: lactobacillus rhamnosus 10,000 MMU CELLS/CAPSULE PO SCH (08:17)
[2019-08-29 11:00] VITALS: BP 148/80
--- NOTE | 2019-08-29 12:23 | NUR ---
Reassessment: Pt no longer on TPN and PO diet has been advanced to regular. Pt with fluctuating PO intake documented with mostly 25% PO intake not meeting nutrient needs however up to 75% PO intake at breakfast this morning. Pt seems to be tolerating PO diet as pt denies N/V per MD note. LBM 08/28. C.diff improving per MD notes. Will continue to follow closely. Recommendation: 1. Consider PO diet change to low residue given C.diff with diarrhea 2. Monitor need for ONS 3. Bowel care as needed 4. Wt per rx Addendum: 08/29/19 at [address] Amended: Links added.
[2019-08-29] MEDS ORDERED: VANC250C12 PO (12:56)
[2019-08-29] MEDS ORDERED: TRAM50TA2 PO (12:56)
[2019-08-29] MEDS ORDERED: CLOP75TA15 PO (13:07)
[2019-08-29] MEDS: FLUoxetine 20mg capsule PO SCH (14:23)
[2019-08-29] MEDS: HYDROcodone/acetaminophen 5mg/325mg tablet PO PRN (14:24)
--- NOTE | 2019-08-29 15:22 | NUR ---
PATIENT STABLE AND APPROPRIATE FOR DISCHARGE, PICC LINE TAKEN OUT, EDUCATION GIVEN, PRESCRIPTION FOR TRAMADOL SENT WITH PATIENT, OTHER MEDS CALLED IN TO PREFERRED PHARMACY, ALL BELONGINGS SENT WITH PATIENT, PATIENT TAKEN BY WHEELCHAIR TO LOBBY TO AN AWAITING CAR WHERE WILL TAKE HOME
== END 2019-08-29 14:40 | disposition home or self-care (01) | DRG 853 ==
LOC: ER 14:36 → ED HOLD 19:06 → SUR 3N 19:52
PROVIDERS: ADMIT Internal Medicine; ATTEND Internal Medicine
PROC: 04HK3DZ Insertion of Intraluminal Device into Right Femoral Artery, Percutaneous Approach (ICD-10-PCS; principal; 2019-08-09)
PROC: 047B3DZ Dilation of Inferior Mesenteric Artery with Intraluminal Device, Percutaneous Approach (ICD-10-PCS; 2019-08-09)
PROC: B4101ZZ Fluoroscopy of Abdominal Aorta using Low Osmolar Contrast (ICD-10-PCS; 2019-08-09)
PROC: B4151ZZ Fluoroscopy of Inferior Mesenteric Artery using Low Osmolar Contrast (ICD-10-PCS; 2019-08-09)
PROC: 04H Lower Arteries, Insertion (ICD-10-PCS; 2019-08-09)
PROC: B415YZZ Fluoroscopy of Inferior Mesenteric Artery using Other Contrast (ICD-10-PCS; 2019-08-09)
PROC: 05HY33Z Insertion of Infusion Device into Upper Vein, Percutaneous Approach (ICD-10-PCS; 2019-08-13)
PROC: BW211ZZ Computerized Tomography (CT Scan) of Abdomen and Pelvis using Low Osmolar Contrast (ICD-10-PCS; 2019-08-16)
PROC: 0DBN8ZX Excision of Sigmoid Colon, Via Natural or Artificial Opening Endoscopic, Diagnostic (ICD-10-PCS; 2019-08-20)
DX: A41.4 Sepsis due to anaerobes (principal); E43 Unspecified severe protein-calorie malnutrition; J11.00 Influenza due to unidentified influenza virus with unspecified type of pneumonia; K51.00 Ulcerative (chronic) pancolitis without complications; K55.1 Chronic vascular disorders of intestine; A04.72 Enterocolitis due to Clostridium difficile, not specified as recurrent; R18.8 Other ascites; J91.8 Pleural effusion in other conditions classified elsewhere; Z66 Do not resuscitate; K52.9 Noninfective gastroenteritis and colitis, unspecified; E87.6 Hypokalemia; D64.9 Anemia, unspecified; E03.9 Hypothyroidism, unspecified; F32.9 Major depressive disorder, single episode, unspecified; F41.9 Anxiety disorder, unspecified; K21.9 Gastro-esophageal reflux disease without esophagitis; Z79.899 Other long term (current) drug therapy; Z90.49 Acquired absence of other specified parts of digestive tract; Z88.0 Allergy status to penicillin; Z68.23 Body mass index [BMI] 23.0-23.9, adult
CPT/HCPCS: 36245; 36415; 36569; 37236; 45331; 71045; 74018; 74176; 74177; 75726; 76937; 80048; 80053; 81001; 81003; 82272; 82948; 83540; 83550; 83605; 83690; 83735; 84100; 84132; 84134; 84145; 84443; 84478; 84484; 84560; 85025; 85027; 85610; 85651; 85730; 86140; 87040; 87081; 87324; 87449; 88305; 93005; 93926; 93975; 96361; 96365; 96366; 96375; 96376; 97110; 97116; 97161; 97530; 99152; 99153; 99285; A4620; C1725; C1760; C1769; C1876; C1894; C9113; G0378; J1170; J1644; J1885; J1956; J2250; J2270; J2405; J2930; J3010; J3480; J3490; J7030; J7040; J7050; J7060; Q4081; Q9963; Q9967

== ENCOUNTER 2021-09-28 07:05 | Day surgery (SDC) | payer MEDICARE ==
[~2021-09-28] VITALS: Ht 154.9 cm; Wt 52.7 kg
[~2021-09-28 07:05] MED LIST changes: -ASPI-1264 PO; +CLOP75TA15 PO; -CYT5T PO; -FURO-150 PO; -LEVO75TA PO; +LEVO88TA2 PO; -LORA0.5T PO; +PANT40TA54 PO; -POTA99TA18 PO; -RES15C PO; +TEMA30CA PO; +TRAM50TA2 PO; +VANC250C12 PO
[2021-09-28 07:20] VITALS: BP 146/83
[2021-09-28] MEDS ORDERED: fentaNYL/PF 50MCG/1 ML 2ML syringe ONE (07:35)
[2021-09-28] MEDS ORDERED: MIDAZolam 1 MG/ML 5ML VIAL ONE (07:35)
[2021-09-28 09:12] VITALS: BP 133/72
[2021-09-28 09:22] VITALS: BP 124/68
[2021-09-28 09:32] VITALS: BP 130/68
[2021-09-28 09:42] VITALS: BP 140/71
== END 2021-09-28 09:55 | disposition home or self-care (01) ==
LOC: GI LAB 07:05
PROVIDERS: ATTEND Specialist
DX: R15.9 Full incontinence of feces (principal); R19.7 Diarrhea, unspecified; K92.1 Melena; K63.89 Other specified diseases of intestine; K57.30 Diverticulosis of large intestine without perforation or abscess without bleeding
CPT/HCPCS: 45380; 88305; G0500; J2250; J3010; J7040; Z7512; 99152

== ENCOUNTER 2023-04-11 15:39 | Outpatient (CLI) | payer MEDICARE ==
[~2023-04-11 15:39] MED LIST changes: -CLOP75TA15 PO; -TRAM50TA2 PO; -VANC250C12 PO
== END 2023-04-11 23:59 | disposition home or self-care (01) ==
LOC: RAD 15:39
PROVIDERS: ATTEND Nurse Practitioner Primary Care
DX: Z01.811 Encounter for preprocedural respiratory examination (principal); R94.31 Abnormal electrocardiogram [ECG] [EKG]
CPT/HCPCS: 93005

== ENCOUNTER 2024-02-25 18:19 | Emergency (ER) | payer MEDICARE ==
[~2024-02-25] VITALS: Ht 152.4 cm; Wt 51.4 kg
[2024-02-25 18:30] VITALS: TEMP 96.4
[2024-02-25 19:14] LABS: ALBUMIN 3.3 G/DL (3.4-5.0); ANION GAP 8 (8-16); BASOPHILS % (AUTO) 0.4 % (0-1); BLOOD UREA NITROGEN 7 MG/DL (7-18); BUN/CREATININE RATIO 9.2 (10.0-20.0); CALCIUM 8.9 MG/DL (8.5-10.1); CHLORIDE 95 MMOL/L (99-107); CREATININE 0.76 MG/DL (0.40-0.90); EOSINOPHILS # (AUTO) 0.1 X10'3 (0-0.9); EOSINOPHILS % (AUTO) 1.1 % (0-6); GLUCOSE 114 MG/DL (70-104); HEMATOCRIT 33.2 % (35.0-45.0); HEMOGLOBIN 11.3 g/dl (12.0-16.0); LYMPHOCYTES # (AUTO) 2.5 X10'3 (1.1-4.8); LYMPHOCYTES % (AUTO) 29.3 % (21-51); MEAN CORPUSCULAR HEMOGLOBIN 29.7 PG (27.0-31.0); MEAN CORPUSCULAR HGB CONC 33.9 g/dL (33.0-36.5); MEAN CORPUSCULAR VOLUME 87.8 FL (78-98); MEAN PLATELET VOLUME 7.3 FL (7.4-10.4); MONOCYTES # (AUTO) 0.6 X10'3 (0-0.9); MONOCYTES % (AUTO) 6.9 % (2-12); NEUTROPHILS # (AUTO) 5.2 X10'3 (1.8-7.7); NEUTROPHILS % (AUTO) 62.3 % (42-75); PLATELET COUNT 415 X10'3 (140-440); POTASSIUM 4.4 MMOL/L (3.5-5.1); RED BLOOD COUNT 3.79 X10'6 (4.20-5.60); SODIUM 130 MMOL/L (135-145); TOTAL CARBON DIOXIDE 26.6 MMOL/L (24-32); WHITE BLOOD COUNT 8.4 X10'3 (4.5-11.0); eCRCL 47 ML/MIN; eGFR 75 ML/MIN
[2024-02-25] MEDS ORDERED: AZIT-164 PO (23:32)
[2024-02-25 23:49] VITALS: BP 152/82; PULSE 52; RESP 16; O2SAT 99
== END 2024-02-25 23:50 | disposition home or self-care (01) ==
LOC: ER 18:20
DX: J32.9 Chronic sinusitis, unspecified (principal); G89.29 Other chronic pain; M54.9 Dorsalgia, unspecified; Z88.0 Allergy status to penicillin; Z88.2 Allergy status to sulfonamides; Z79.899 Other long term (current) drug therapy; Z90.49 Acquired absence of other specified parts of digestive tract; Z98.890 Other specified postprocedural states; Z72.89 Other problems related to lifestyle
CPT/HCPCS: 36415; 80048; 85025; 99283

== ENCOUNTER 2024-09-15 14:26 | Emergency (ER) | payer MEDICARE ==
[~2024-09-15] VITALS: Ht 152.4 cm; Wt 52.7 kg
[2024-09-15 15:55] VITALS: TEMP 97.9
[2024-09-15 16:29] LABS: BASOPHILS % (AUTO) 0.5 % (0-1); EOSINOPHILS # (AUTO) 0.1 X10'3 (0-0.9); EOSINOPHILS % (AUTO) 1.2 % (0-6); HEMATOCRIT 34.4 % (35.0-45.0); HEMOGLOBIN 11.7 g/dl (12.0-16.0); LYMPHOCYTES # (AUTO) 2.5 X10'3 (1.1-4.8); LYMPHOCYTES % (AUTO) 42.2 % (21-51); MEAN CORPUSCULAR HGB CONC 34.1 g/dL (33.0-36.5); MEAN CORPUSCULAR VOLUME 88.1 FL (78-98); MEAN PLATELET VOLUME 7.6 FL (7.4-10.4); MONOCYTES # (AUTO) 0.6 X10'3 (0-0.9); MONOCYTES % (AUTO) 9.6 % (2-12); NEUTROPHILS # (AUTO) 2.7 X10'3 (1.8-7.7); NEUTROPHILS % (AUTO) 46.5 % (42-75); PLATELET COUNT 272 X10'3 (140-440); RED BLOOD COUNT 3.91 X10'6 (4.20-5.60); RED CELL DISTRIBUTION WIDTH 14.9 % (11.5-14.5); WHITE BLOOD COUNT 5.9 X10'3 (4.5-11.0)
[2024-09-15 16:46] LABS: ALANINE AMINOTRANSFERASE 20 U/L (12-78); ALBUMIN 3.3 G/DL (3.4-5.0); ALBUMIN/GLOBULIN RATIO 0.9 (1.1-1.5); ANION GAP 7 (8-16); ASPARTATE AMINO TRANSFERASE 19 U/L (10-37); BILIRUBIN,TOTAL 0.3 MG/DL (0.1-1.0); BLOOD UREA NITROGEN 4 MG/DL (7-18); BUN/CREATININE RATIO 5.1 (10.0-20.0); CHLORIDE 100 MMOL/L (99-107); CREATININE 0.78 MG/DL (0.40-0.90); POTASSIUM 3.6 MMOL/L (3.5-5.1); SODIUM 136 MMOL/L (135-145); TOTAL CARBON DIOXIDE 29.1 MMOL/L (24-32); TOTAL PROTEIN 7.1 G/DL (6.4-8.2); eCRCL 46 ML/MIN; eGFR 72 ML/MIN
[2024-09-15 16:55] LABS: ALKALINE PHOSPHATASE 61 IU/L (46-116); GLUCOSE 91 MG/DL (70-104)
[2024-09-15 18:34] VITALS: BP 145/92; PULSE 78; RESP 14; O2SAT 99
[2024-09-16 11:26] LABS: C DIFF ANTIGEN POSITIVE (NEGATIVE); C DIFF SPECIMEN=DIARRHEA? ACCEPTABLE; C DIFFICILE TOXINS A&B POSITIVE (Neg)
[2024-09-16] MEDS ORDERED: VANC125C5 PO (13:10)
== END 2024-09-15 18:36 | disposition home or self-care (01) ==
LOC: ER 14:27
DX: R19.7 Diarrhea, unspecified (principal); R10.30 Lower abdominal pain, unspecified; G89.29 Other chronic pain; Z88.0 Allergy status to penicillin; Z88.2 Allergy status to sulfonamides; Z88.1 Allergy status to other antibiotic agents; Z88.5 Allergy status to narcotic agent; Z88.8 Allergy status to other drugs, medicaments and biological substances; Z90.49 Acquired absence of other specified parts of digestive tract
CPT/HCPCS: 36415; 74176; 80053; 85025; 87324; 87449; 99284